=== PATIENT | female | born 1980 | race Caucasian/White ===

== ENCOUNTER 2017-12-08 15:02 | Observation (INO) | payer MEDICAID, SELFPAY ==
[2017-12-08] VITALS (102 sets, daily range): BP systolic 61–120; BP diastolic 27–75; PULSE 51–89; RESP 4–32; TEMP 35.7–36.8; O2SAT 77–100
[2017-12-08] MEDS: Albuterol 2.5 MG/3 ML INH SOLN VIAL (15:50)
--- NOTE | 2017-12-08 15:58 | DI.RAD_ITS ---
SYMPTOM/DIAGNOSIS: COUGH SHORTNESS OF BREATH, F/O ACUTE DISEASE PORTABLE AP CHEST: 1735 HOURS 12/08 The heart is not enlarged. There are patchy intrapulmonary opacities seen bilaterally most prominent in mid lungs and lung bases. The findings are suspicious for multi-focal pneumonia. Appropriate follow up studies requested.
--- NOTE | 2017-12-08 16:00 | W.ED.GENAD ---
Discharge Plan Disposition Patient Disposition: [facility] INPATIENT Condition: Fair Discharge Details Chief Complaint: SOB Clinical Impression: Pneumonia, Hypoxia, Leukocytosis, Moderate methadone dependence, Sepsis, Hypotension Reason For Visit: PNEUMONIA, COPD Admit Date/Time: 12/08/17 19:14 Admit Provider: Hayden Garza Attending Provider: Hayden Garza Primary Care Provider: Raya Rice ED Provider: Kacy Virk Discharge Data Discharge Date/Time-TO BE ENTERED AT DEPARTURE: 12/08/17 22:05 Medical Decision Making 37yo M who presents to the ED after sent by PCP office for cold symptoms, shortness of breath and hypoxia of 62% on room air. On arrival, O2 sat 71% on room air. She increased to 94% on 4 L. She has a history of narcotic drug abuse but denies any recently. She is on methadone. Patient airway intact and she is speaking in full sentences. She is awake but appears drowsy at times. Normal pupils. She does not appear somnolent. Blood pressure 108/49. Pulse 88. Respirations 16. Diminished breath sounds with wheezing and rhonchi throughout She admits to right ear pain, sore throat and cough with yellow sputum for the past 4 days. She also admits to fatigue, decreased p.o. intake. She denies chest pain or known fever. She denies history of intubations. Differential diagnosis includes acute asthma exacerbation, pneumonia, PE, PA. Will give a 1 hour long neb, Solu-Medrol IV, magnesium. Due to patient's significant hypoxia, an ABG was done which noted pH of 7.38, oxygen saturation 89%, bicarb 26, PCO2 44. 1700: Labs reviewed and note a white blood cell count of 25. Glucose 76. Anion gap 11.3. Troponin negative. Will give 1 L IV fluids. Pt states she feels better. Chest x-ray read pending but appears to be consolidation in bases, worse on right side. Will start treatment for community-acquired pneumonia. She denies any recent antibiotics or hospital admission. 1800 -- EKG notes a rate of 83, sinus, no acute ST elevation or depression, OTc 472, QRS 90. She is allergic to PCN and there is an interaction of levaquin with methadone w/ risk for QT prolongation and she is already borderline QTc for female. Will give vanc and aztrenam IV. 1814: Nurse called me to room for hypotension. Systolic blood pressure 78. Patient only has 22-gauge IV and hand. She has a previous history of heroin use and poor prophylaxis. We will place a central line. Pt still appears drowsy at times which I question is due to her methadone as she is very easily arousable and still stating that she feels better. Her color is pale. Lung sounds improved. O2 sat still 88-92 % on 4L NC. Will give another 1 hour long neb. Chest x-ray notes opacities and bases and right mid lung. 1829: Case discussed with hospitalist Dr. Garza - accepts pt for admission. COURSE above in note not completed by me - Kacy Virk 191: Patient has responded to fluids and central line has not yet been placed and may be able to hold at this time. This was discussed with Dr. Garza. Patient has has received 1 L IV fluids through a 22-gauge in her hand. Multiple attempts unsuccessful for second line placement. Nurse practitioner Sg is going to place an ultrasound-guided IV at bedside now. 2030: Systolic blood pressure 70s-80s. Patient has received approximately 1250mL IV fluid. She states she feels better but she is pale. Her SBP while placing central line 98. Central line placed in the right femoral region. Had some difficulty with fully inserting catheter due to kinking of wire which may have been from body habitus and there is approximately 3cm of catheter end out of groin but is sutured in place and all ports with good blood return. Pt to go to ICU now. Just prior to ICU transfer, noted that lactate returned and 0.5. I am still suspecting sepsis due to pneumonia however unsure if there is another process causing her hypotension. Her d dimer was negative as well. HPI General Mode of arrival: wheelchair. Date/Time Provider Initiated Documentation: 12/08/17 15:48. Limitations to Documentation: no limitations. Information obtained by: patient. HPI Narrative: Patient is a 37-year-old female with a history of asthma, diabetes, COPD, GERD, tobacco smoker, chronic pain on methadone, polysubstance abuse and opioid dependence who presents for right ear pain, sore throat, cough with yellow sputum production for the past 4 days. Patient was sent by the PCP office for oxygen saturations between 60 and 70%. Patient came by private vehicle. Patient also admits to fatigue and decreased p.o. intake. She denies history of intubations. Past medical history: Asthma, anxiety, bipolar disorder, depression, diabetes, GERD, hepatitis C, PTSD Surgical history: Appendectomy, cholecystectomy, , hysterectomy, tonsillectomy Social history: smokes tobacco, denies alcohol use. Previous history of heroin and cocaine Medications: See list Allergies: Penicillin, sulfa Related Data Home Medications Medication Instructions Recorded Confirmed albuterol sulfate 2 puff INHALATION Q6H PRN PRN 10/10/13 12/10/17 methadone 100 mg PO DAILY 10/11/15 12/10/17 esomeprazole magnesium [Nexium] 40 mg PO DAILY 02/08/16 12/10/17 fluoxetine 40 mg PO BID 02/08/16 12/10/17 gabapentin 1,600 mg PO TID 02/08/16 12/10/17 hydroxyzine pamoate [Vistaril] 50 mg PO BID 02/08/16 12/10/17 insulin lispro [Humalog KwikPen 3 unit SQ PRN PRN 07/18/17 12/10/17 Insulin] zolpidem 10 mg PO HS 07/18/17 12/10/17 albuterol sulfate 2.5 mg INHALATION Q2H PRN #90 ml 12/10/17 12/10/17 doxycycline hyclate 100 mg PO BID #14 tab 12/10/17 hydroxyzine pamoate 100 mg PO QPM 12/10/17 12/10/17 insulin detemir U-100 [Levemir 20 unit SUBCUT HS #15 ml 12/10/17 12/10/17 FlexTouch U-100 Insuln] lithium carbonate 300 mg PO BID 12/10/17 12/10/17 prednisone 40 mg PO DAILY #14 tab 12/10/17 12/10/17 propranolol 80 mg PO DAILY 12/10/17 12/10/17 Previous Rx's Medication Instructions Recorded albuterol sulfate 2.5 mg INHALATION Q2H PRN #90 ml 12/10/17 doxycycline hyclate 100 mg PO BID #14 tab 12/10/17 insulin detemir U-100 [Levemir 20 unit SUBCUT HS #15 ml 12/10/17 FlexTouch U-100 Insuln] prednisone 40 mg PO DAILY #14 tab 12/10/17 Allergies Allergy/AdvReac Type Severity Reaction Status Date / Time Penicillins Allergy Severe Anaphylaxsi Unverified 07/18/17 18:45 s Sulfa (Sulfonamide Allergy Severe Anaphylaxsi Unverified 07/18/17 18:45 Antibiotics) s General Stated Complaint: SOB NANI: 3 Review of Systems Review of Systems All systems reviewed & are unremarkable except as noted in HPI and below Constitutional Denies chills, Denies excessive sweating, Denies fatigue, Denies fever(s), Denies weakness and Denies weight loss Eyes Reports system reviewed and no additional complaints, except as docu and Denies blurry vision ENT Denies vertigo, Denies dizziness, Reports otalgia, Denies nasal congestion, Reports sore throat and Denies throat swelling Cardiovascular Denies chest pain, Denies syncope, Denies rapid heart rate and Reports dyspnea Respiratory Reports dyspnea Gastrointestinal Denies abdominal pain, Denies diarrhea and Denies vomiting Genitourinary Denies hematuria, Denies dysuria and Denies flank pain Musculoskeletal Denies back pain and Denies joint swelling Integumentary/Breasts Denies lesions and Denies rash Neurologic Denies behavioral changes, Denies confusion, Denies vertigo, Denies dizziness, Denies syncope and Denies weakness Psychiatric Denies behavioral changes, Denies confusion and Denies depression Endocrine Denies excessive sweating and Denies fatigue Hematologic/Lymphatic Denies easy bruising and Denies lymphadenopathy Allergic/Immunologic Denies throat swelling PFSH Medical History COPD (chronic obstructive pulmonary disease) (Chronic) Diabetes (Chronic) Substance abuse (Acute) Pneumonia (Acute) Seizure (Suspected 06/27/13) Substance abuse (Acute 06/27/13) Withdrawal symptoms, drug or narcotic (Acute 06/27/13) Chronic hepatitis C (Chronic) Opiate dependence (Chronic) Polysubstance abuse (Chronic) Chronic pain syndrome (Chronic) Bipolar disorder (Chronic) GERD (gastroesophageal reflux disease) (Chronic) Tobacco use disorder (Chronic) Reactive airway disease (Chronic) History of abnormal cervical Pap smear (Chronic) Stomatitis and mucositis (Acute) Social History Smoking/Tobacco Use Status: Current every day Exam Const General: cooperative and ill appearing Orientation: alert and awake HENMT Head: normal to inspection Ears: hearing grossly normal bilaterally, external ears normal and TM's normal bilaterally General nose exam: external nose normal Face and sinus: normal facial exam and no sinus tenderness Mouth: moist mucous membranes Teeth and gingiva: dentition normal Throat: posterior oropharynx normal Eyes General: appearance normal, both eyes and all related structures Eyelids: eyelids normal Pupils: PERRL EOM: EOM intact bilaterally Neck Neck: normal visual inspection Lymphatic: no lymphadenopathy noted Chest Chest: normal inspection of the chest Resp Effort & Inspection: able to speak in complete sentences Auscultation: diminished lung sounds (throughout) Cardio Rate: regular rate Rhythm: regular rhythm GI Inspection: normal to inspection Palpation: soft, not firm, no guarding, no hepatosplenomegaly, no masses and nontender Auscultation: normal bowel sounds Back/Spine/Pelvis Back: no CVA tenderness Skin General skin exam: no rashes or lesions noted and pallor Neuro General: awake (but drowsy at times as well and easily arousable) and oriented x3 Cognition: normal cognition Speech: speech normal Motor: muscle tone normal throughout Sensory Exam: no sensory deficits noted Extrem General: normal to inspection, full ROM, normal capillary refill and no edema Psych Appearance: grossly normal Mental Status: mental status grossly normal Speech and Movement: speech and movement normal Affect: normal affect Thought Process: normal Course This is a 37-year-old woman admitted on 12/08/2017 with worsening shortness of breath and cough. She was found to have a right lower lobe infiltrate. Blood cultures taken on admission have come back positive 1 out of 2 bottles for gram-positive cocci, staph species. She was empirically started on vancomycin and aztreonam because of her multiple drug allergies. She was on appropriate antibiotics but unfortunately cannot wait for further identification of the bacteria nor can she wait for further workup of possible staph aureus bacteremia. We discussed echocardiogram further blood culture surveillance. She understands this but states she has to take care of her mother and cannot wait. She said she would come back if she began to feel ill. She is adamant she feels better and wants to go home. Vital Signs Pulse 88 12/08/17 15:05 Respiratory Rate 16 12/08/17 15:05 Blood Pressure 108/49 L 12/08/17 15:05 Pulse Oximetry 77 L 12/08/17 15:05 Pulse 88 12/08/17 15:05 Pulse 86 12/08/17 15:22 Respiratory Rate 15 12/08/17 15:22 Respiratory Effort 12/08/17 15:21 Blood Pressure 108/49 L 12/08/17 15:05 Pulse Oximetry 91 L 12/08/17 15:22 Oxygen Delivery Method Room Air 12/08/17 15:05 Oxygen Flow Rate 0 12/08/17 15:05 Pain Level 7 12/08/17 15:05 Procedures Central Line Placement Right Femoral: Time Out Performed: Yes Patient Placed on Monitor/Pulse Ox: Yes MD Prep: mask, gown and gloves Central Line Prep: Chlorhexidine scrub Local Anesthetic: Lidocaine 1% Ultrasound Used for Placement: No Central Line Lumen Inserted: triple Post Procedure: good blood return, all ports aspirated, flushed, capped and sutured in place with 3-0 nylon Patient Tolerated Procedure: well Complications: other (Good blood return upon needle placement in right femoral vein but wire kinked twice during placement. Approximately 3 cm of catheter left outside. Good blood return and all ports)
[2017-12-08] MEDS: Albuterol 2.5 MG/3 ML INH SOLN VIAL 10 MG UPD (16:08)
[2017-12-08 16:23] LABS: BE 1.2 mmol/L (-3-3); HCO3 26 mmol/L (22-28); pCO2 44 mmHg (34-47); pH 7.38 (7.35-7.45); pO2 56 mmHg (83-108); sO2 89 % (94-98); tCO2 24 mmol/L (22-29)
[2017-12-08] MEDS: methylPREDNISolone SUCC 125 MG VIAL IVP (16:24)
[2017-12-08] MEDS: MAGNESIUM SULFATE 2 GM/50 ML BAG IVPB (16:25)
[2017-12-08 16:33] LABS: Abs Immature Grans 0.09 k/cumm (0.0-0.09); Absolute Eosinophil Count 0.18 k/cumm (0.0-0.7); Basophils % 0.2; Eosinophils % 0.7; HCT 38.3 % (36.0-46.0); HGB 12.3 g/dL (12.0-15.5); Immature Grans % 0.4; Lymphocytes % 14.2; Mean Corp. HGB Concentration 32.1 g/dL (32.0-36.0); Mean Corpuscular Hemoglobin 27.5 pg (27.0-33.0); Mean Corpuscular Volume 85.7 fL (80-95); Mean Platelet Volume 10.9 fL (8.0-11.0); Monocytes % 4.6; Neutrophils % 79.9; Platelet Count 299 x1000/uL (130-400); RBC 4.47 m/cumm (4.00-5.20); RBC Distribution Width 15.8 % (11.7-14.6)
[2017-12-08 16:42] LABS: ALT 81 U/L (12-78); AST 54 U/L (15-37); Albumin 3.5 g/dL (3.4-5.0); Alkaline Phosphatase 163 U/L (46-116); Anion Gap 11.3 mmol/L (3-11); BUN 10 mg/dL (7-18); Bilirubin, Total 0.6 mg/dL (0.2-1.0); CO2 25.7 mmol/L (21.0-32.0); CREATININE 0.75 mg/dL (0.55-1.02); Calcium 8.9 mg/dL (8.5-10.1); Chloride 99 mmol/L (98-107); Glucose 76 mg/dL (70-100); Potassium 3.8 mmol/L (3.5-5.1); Sodium 136 mmol/L (136-145); Total Protein 8.1 g/dL (6.4-8.2); Troponin I < 0.02 ng/mL (0.00-0.06)
[2017-12-08 16:50] LABS: Absolute Basophil Count 0.05 k/cumm (0.0-0.2); Absolute Lymphocyte Count 3.62 k/cumm (1.2-3.4); Absolute Monocyte Count 1.17 k/cumm (0.11-0.7); Absolute Neutrophil Count 20.38 k/cumm (1.2-6.7); Diff Comment Agrees w/ Instrument; RBC Morphology Normal; White Blood Cell Count 25.51 k/cumm (4.4-10.8)
[2017-12-08] MEDS: Normal Saline 1,000 ML 1000 ML IV ×2 (17:15→20:00)
[2017-12-08] MEDS: Albuterol 2.5 MG/3 ML INH SOLN VIAL 7.5 MG UPD (18:00)
--- NOTE | 2017-12-08 18:07 | DI.VRAD_ITS ---
EXAM: XR Chest, 1 View EXAM DATE/TIME: 12/08/2017 3:59 PM CLINICAL HISTORY: 37 years old, female; Signs and symptoms; Shortness of breath TECHNIQUE: XR of the chest, 1 view. COMPARISON: CR CHEST 2 VIEWS PA,LAT 12/03/2011 6:27 PM FINDINGS: Lungs: Opacities in the bases and right midlung may represent atelectasis or pneumonia. Pleural space: Unremarkable. No pleural effusion. No pneumothorax. Heart/Mediastinum: Stable cardiac silhouette Bones/joints: Osseous structures are stable IMPRESSION: Opacities in the bases and right midlung may represent atelectasis or pneumonia. Dictated and Authenticated by: Marie Herrera MD. Ordering:CHANTE GONZALES MD
[2017-12-08 18:45] LABS: D-Dimer 339 ng/mlFEU (<500)
--- NOTE | 2017-12-08 18:58 | HPE_ITS ---
Date of service: 12/08/17 Time of Service: 18:56 Assessment and Plan (1) Pneumonia: Current visit: Yes Status: Acute COPD, possible pneumonia. Given marked leukocytosis and hypoxia will charlee the safe side and give IV antibiotics and in addition to a steroids and updrafts. Will avoid cephalosporin given the anaphylactic reaction to penicillins. Will also avoid fluoroquinolone quinolone and Zithromax given the marginal QT interval and the risk for further prolongation with these antibiotics will continue the vancomycin and aztreonam regimen as started in the emergency room for now. (2) Substance abuse: Current visit: Yes Status: Acute We will continue methadone as is. (3) Diabetes: Current visit: Yes Status: Chronic We will hold any scheduled insulin give any euglycemia at present and cover with sliding scale insulin. (4) COPD (chronic obstructive pulmonary disease): Current visit: Yes Status: Chronic See above History of Present Illness Chief Complaint: cough, sob Narrative: Patient is a 37-year-old female with history of substance abuse. She comes in with 4 days of productive cough and 1 day of shortness of breath.. She was seen in her primary care doctor's office today and the O2 sats were reported to be in the 60s. Here in the emergency room she was noted to be diffusely wheezing. She has been given steroids, magnesium and updrafts and she states she feels somewhat better initial findings of note for leukocytosis of 25,000 and chest x-ray showing diffuse pneumonitis.. She was ordered for vancomycin and aztreonam and was admitted for further evaluation and management. Allergy to penicillin (anaphylaxis), sulfa (anaphylaxis) Medications albuterol as needed Nexium 40 daily Prozac 40 twice daily Neurontin 1600 3 times daily Vistaril 50 4 times daily Levemir 34 units daily Humalog as needed methadone 100 mg daily daily Inderal 80 daily Ambien 10 at bedtime Past medical history substance abuse diabetes hepatitis C chronic pain bipolar GERD continued smoking Physical exam temp 36.7 blood pressure 108/49 respiration 20 pulse 80 O2 sat 93 % on 4 L. HEENT shows no signs of head trauma neck is supple. Lungs show diffuse rales and rhonchi. Heart is distant but regular rate and rhythm. Abdomen is soft and nontender. Pelvic and rectal exams are deferred. Neurological patient is alert and oriented and moves all 4 extremities equally. Laboratory: White count is 25.5 hematocrit 38 platelets 239 sodium 136 potassium 3.8 chloride 99 bicarb 25 BUN 10 creatinine 0.7. Glucose 76 lactate pending EKG shows sinus rhythm with QTC of 472. Chest x-ray shows pneumonitis versus atelectasis, poor inspiration. Review of Systems Review of Systems All systems reviewed & are unremarkable except as noted in HPI and below PFSH Social History Smoking/Tobacco Use Status: Current every day Meds Home Medications Medication Instructions Recorded Confirmed Type insulin detemir U-100 [Levemir 34 units SUB-Q DAILY 05/25/12 12/08/17 History Flexpen] albuterol sulfate 1 ea INHALATION PRN PRN 10/10/13 12/08/17 History albuterol sulfate 2 puff INHALATION Q6H PRN PRN 10/10/13 12/08/17 History methadone 100 mg PO DAILY 10/11/15 12/08/17 History esomeprazole magnesium [NexIUM] 40 mg PO DAILY 02/08/16 12/08/17 History fluoxetine 40 mg PO BID 02/08/16 12/08/17 History gabapentin 1,600 mg PO TID 02/08/16 12/08/17 History hydroxyzine pamoate [Vistaril] 50 mg PO QID 02/08/16 12/08/17 History propranolol 80 mg PO DAILY 02/08/16 12/08/17 History insulin lispro [Humalog Kwikpen 3 unit SQ PRN PRN 07/18/17 12/08/17 History U-100] zolpidem 10 mg PO HS 07/18/17 12/08/17 History Allergies Allergy/AdvReac Type Severity Reaction Status Date / Time Penicillins Allergy Severe Anaphylaxsi Unverified 07/18/17 18:45 s Sulfa (Sulfonamide Allergy Severe Anaphylaxsi Unverified 07/18/17 18:45 Antibiotics) s Exam Narrative Exam Narrative: seed HPI Results Labs : 12/08/17 16:05 12/08/17 16:05 Laboratory Results - last 24 hr 12/08/17 12/08/17 12/08/17 16:05 16:05 16:05 WBC 25.51 H* RBC 4.47 Hgb 12.3 Hct 38.3 MCV 85.7 MCH 27.5 MCHC 32.1 RDW 15.8 H Plt Count 299 MPV 10.9 Immature Gran % 0.4 Neutrophils % 79.9 Lymphocytes % 14.2 Monocytes % 4.6 Eosinophils % 0.7 Basophils % 0.2 Absolute Neutrophils 20.38 H Absolute Lymphocytes 3.62 H Absolute Monocytes 1.17 H Absolute Eosinophils 0.18 Absolute Basophils 0.05 Differential Comment Agrees w/ instrument RBC Morphology Normal D-Dimer Sample Site Unknown pCO2 44 pO2 56 L O2 Saturation 89 L ABG pH 7.38 ABG HCO3 26 ABG Total CO2 24 ABG Base Excess 1.2 Sodium 136 Potassium 3.8 Chloride 99 Carbon Dioxide 25.7 Anion Gap 11.3 H BUN 10 Creatinine 0.75 Estimated GFR/1.73 m2 >= 60.00 Glucose 76 Calcium 8.9 Magnesium 2.0 Total Bilirubin 0.6 AST 54 H ALT 81 H Alkaline Phosphatase 163 H Troponin I < 0.02 Total Protein 8.1 Albumin 3.5 12/08/17 16:05 WBC RBC Hgb Hct MCV MCH MCHC RDW Plt Count MPV Immature Gran % Neutrophils % Lymphocytes % Monocytes % Eosinophils % Basophils % Absolute Neutrophils Absolute Lymphocytes Absolute Monocytes Absolute Eosinophils Absolute Basophils Differential Comment RBC Morphology D-Dimer 339 Sample Site pCO2 pO2 O2 Saturation ABG pH ABG HCO3 ABG Total CO2 ABG Base Excess Sodium Potassium Chloride Carbon Dioxide Anion Gap BUN Creatinine Estimated GFR/1.73 m2 Glucose Calcium Magnesium Total Bilirubin AST ALT Alkaline Phosphatase Troponin I Total Protein Albumin
[2017-12-08] MEDS: AZTREONAM 2,000 MG in Normal Saline 100 ML 200 MG IVPB (19:12)
[2017-12-08 19:13] LABS: BE -1.5 mmol/L (-3-3); HCO3 24 mmol/L (22-28); pCO2 41 mmHg (34-47); pH 7.37 (7.35-7.45); pO2 58 mmHg (83-108); sO2 89 % (94-98); tCO2 22 mmol/L (22-29)
[2017-12-08 19:15] LABS: FIO2 Cannula %; FIO2L 3 L; Site Right Radial
[2017-12-08 19:18] LABS: Lactate-non-spesis 0.5 mmol/L (0.6-1.4)
[2017-12-08] MEDS: VANCOMYCIN 1,250 MG in Normal Saline 250 ML 166.6666 MG IVPB (20:02)
[2017-12-08 20:24] LABS: *AMPHETAMINES SCREEN URINE Negative (Negative); *BARBITURATES SCREEN URINE Negative (Negative); *BENZODIAZEPINES SCREEN URINE Negative (Negative); Cannabinoids THC Negative (Negative); Cocaine Screen,Urine Negative (Negative); METHADONE URINE SCREEN POSITIVE (Negative); OPIATES URINE SCREEN Negative (Negative); Tricyclic Antidepressants Negative (Negative)
--- NOTE | 2017-12-08 22:41 | NUR.NOTE ---
Nursing Note: At 1900 patient had a femoral triple lumen placed by ED provider in her right groin this short story writer was present during the multiple attempts during insertion. Provider denied the need for verification of placement. At 1924 the levophed was ordered to treat patients hypotention. At the time of administration ICU nurse Beverly and Er nurse Vilma were present at bedside. Drip was started at 5 MCG a min. Patient didn't tolerate the medication she started to have pauses and her HR went from the 80's down into the 50's. The medication was stopped. Patient recovered and began to feel much better. This short story writer then tried to infuse just saline thought the same lumen (white) in the femoral triple lumen. Patient then began with the same symptoms.The Levophed was then infused through the iv in her LFA, patient tolerated it for a short while and then again began to not tolerate the medication. This process took a long while. The patient was wheeled up at 2205 to the ICU.
--- NOTE | 2017-12-08 23:29 | W.PM.PROGNOT ---
Subjective Interval history since last seen: After having seen the patient, while still in ER she became hypotensive. Levophed was started and she became acutely bradycardic and diaphoretic. levophed was stopped, she had similar reaction to saline . Since arrival in ICU BP has been stable in 120 range. Patient states she feels well at this point. Has had 3 liters IVF total. EKG at present is unchanged. A/P Unclear what the hypotension represents. In setting of evident infection we have to presume septic shock like picture, though subsequent reaction to levophed suggests either toxic effect or vagal reaction. In any case no other source of hypotension evident and patient has been hemodynamically stable since arrival in ICU. Will continue antibiotics, await cultures and continue IVF. Objective Objective Clinical Data: Abnormal lab results 12/08/17 12/08/17 12/08/17 Range/Units 16:05 16:05 16:05 WBC 25.51 H* (4.4-10.8) k/cumm RDW 15.8 H (11.7-14.6) % Absolute Neutrophils 20.38 H (1.2-6.7) k/cumm Absolute Lymphocytes 3.62 H (1.2-3.4) k/cumm Absolute Monocytes 1.17 H (0.11-0.7) k/cumm pO2 56 L (83-108) mmHg O2 Saturation 89 L (94-98) % Anion Gap 11.3 H (3-11) mmol/L Lactate (0.6-1.4) mmol/L AST 54 H (15-37) U/L ALT 81 H (12-78) U/L Alkaline Phosphatase 163 H (46-116) U/L 12/08/17 12/08/17 Range/Units 17:45 19:10 WBC (4.4-10.8) k/cumm RDW (11.7-14.6) % Absolute Neutrophils (1.2-6.7) k/cumm Absolute Lymphocytes (1.2-3.4) k/cumm Absolute Monocytes (0.11-0.7) k/cumm pO2 58 L (83-108) mmHg O2 Saturation 89 L (94-98) % Anion Gap (3-11) mmol/L Lactate 0.5 L (0.6-1.4) mmol/L AST (15-37) U/L ALT (12-78) U/L Alkaline Phosphatase (46-116) U/L Vital Signs Temperature 35.7 C L 12/08/17 22:48 Temperature Source Tympanic 12/08/17 22:48 Pulse 75 12/08/17 22:48 Pulse 79 12/08/17 22:31 Respiratory Rate 24 12/08/17 22:48 Respiratory Effort 12/08/17 22:48 Respiratory Depth Normal 12/08/17 22:48 Respiratory Pattern Normal 12/08/17 22:48 Blood Pressure 113/62 12/08/17 22:48 Blood Pressure Mean 79 12/08/17 22:48 Blood Pressure Position Supine 12/08/17 22:48 Pulse Oximetry 96 12/08/17 22:48 Oxygen Delivery Method Nasal Cannula 12/08/17 22:48 Oxygen Flow Rate 4 12/08/17 22:48 Pain Level 0 12/08/17 22:48 Intake & Output 12/07/17 12/08/17 12/08/17 23:59 11:59 23:59 Intake Total 3400 / 3400 Output Total 400 / 400 Balance 3000 / 3000 Weight 92.5 kg Intake: IV 3400 / 3400 Output: Urine 400 / 400 Other: Urine Color Straw Urine Appearance Clear Comment S/P hysterectomy. Laboratory Results WBC 25.51 k/cumm (4.4-10.8) H* 12/08/17 16:05 RBC 4.47 m/cumm (4.00-5.20) 12/08/17 16:05 Hgb 12.3 g/dL (12.0-15.5) 12/08/17 16:05 Hct 38.3 % (36.0-46.0) 12/08/17 16:05 MCV 85.7 fL (80-95) 12/08/17 16:05 MCH 27.5 pg (27.0-33.0) 12/08/17 16:05 MCHC 32.1 g/dL (32.0-36.0) 12/08/17 16:05 RDW 15.8 % (11.7-14.6) H 12/08/17 16:05 Plt Count 299 x1000/uL (130-400) 12/08/17 16:05 MPV 10.9 fL (8.0-11.0) 12/08/17 16:05 Immature Gran % 0.4 12/08/17 16:05 Neutrophils % 79.9 12/08/17 16:05 Lymphocytes % 14.2 12/08/17 16:05 Monocytes % 4.6 12/08/17 16:05 Eosinophils % 0.7 12/08/17 16:05 Basophils % 0.2 12/08/17 16:05 Absolute Neutrophils 20.38 k/cumm (1.2-6.7) H 12/08/17 16:05 Absolute Lymphocytes 3.62 k/cumm (1.2-3.4) H 12/08/17 16:05 Absolute Monocytes 1.17 k/cumm (0.11-0.7) H 12/08/17 16:05 Absolute Eosinophils 0.18 k/cumm (0.0-0.7) 12/08/17 16:05 Absolute Basophils 0.05 k/cumm (0.0-0.2) 12/08/17 16:05 Differential Comment Agrees w/ instrument 12/08/17 16:05 RBC Morphology Normal 12/08/17 16:05 D-Dimer 339 ng/mlFEU (<500) 12/08/17 16:05 Sample Site Right radial 12/08/17 19:10 pCO2 41 mmHg (34-47) 12/08/17 19:10 pO2 58 mmHg (83-108) L 12/08/17 19:10 O2 Saturation 89 % (94-98) L 12/08/17 19:10 ABG pH 7.37 (7.35-7.45) 12/08/17 19:10 ABG HCO3 24 mmol/L (22-28) 12/08/17 19:10 ABG Total CO2 22 mmol/L (22-29) 12/08/17 19:10 ABG Base Excess -1.5 mmol/L (-3-3) 12/08/17 19:10 Oxygen Liter Flow 3 L 12/08/17 19:10 FiO2 Cannula % 12/08/17 19:10 Sodium 136 mmol/L (136-145) 12/08/17 16:05 Potassium 3.8 mmol/L (3.5-5.1) 12/08/17 16:05 Chloride 99 mmol/L (98-107) 12/08/17 16:05 Carbon Dioxide 25.7 mmol/L (21.0-32.0) 12/08/17 16:05 Anion Gap 11.3 mmol/L (3-11) H 12/08/17 16:05 BUN 10 mg/dL (7-18) 12/08/17 16:05 Creatinine 0.75 mg/dL (0.55-1.02) 12/08/17 16:05 Estimated GFR/1.73 m2 >= 60.00 (mL/min/1.73m2) 12/08/17 16:05 Glucose 76 mg/dL (70-100) 12/08/17 16:05 Lactate 0.5 mmol/L (0.6-1.4) L 12/08/17 17:45 Calcium 8.9 mg/dL (8.5-10.1) 12/08/17 16:05 Magnesium 2.0 mg/dL (1.8-2.4) 12/08/17 16:05 Total Bilirubin 0.6 mg/dL (0.2-1.0) 12/08/17 16:05 AST 54 U/L (15-37) H 12/08/17 16:05 ALT 81 U/L (12-78) H 12/08/17 16:05 Alkaline Phosphatase 163 U/L (46-116) H 12/08/17 16:05 Troponin I < 0.02 ng/mL (0.00-0.06) 12/08/17 16:05 Total Protein 8.1 g/dL (6.4-8.2) 12/08/17 16:05 Albumin 3.5 g/dL (3.4-5.0) 12/08/17 16:05 Urine Opiates Screen Negative (Negative) 12/08/17 20:05 Urine Methadone Screen Positive (Negative) 12/08/17 20:05 Ur Barbiturates Screen Negative (Negative) 12/08/17 20:05 Ur Tricyclics Screen Negative (Negative) 12/08/17 20:05 Ur Amphetamines Screen Negative (Negative) 12/08/17 20:05 U Benzodiazepines Scrn Negative (Negative) 12/08/17 20:05 Urine Cocaine Screen Negative (Negative) 12/08/17 20:05 Ur THC Screen Negative (Negative) 12/08/17 20:05
[2017-12-09] VITALS (30 sets, daily range): BP systolic 99–134; BP diastolic 52–96; PULSE 53–110; RESP 15–26; TEMP 35.6–36.7; O2SAT 92–96
[2017-12-09] MEDS: Gabapentin 800 MG TAB 1600 MG PO ×4 (00:01→20:15)
[2017-12-09] MEDS: FLUoxetine 20 MG CAP 40 MG PO ×3 (00:01→20:13)
[2017-12-09] MEDS: Normal Saline 250 ML IV (00:01)
[2017-12-09] MEDS: Zolpidem 10 MG TAB PO ×2 (00:01→20:20)
[2017-12-09] MEDS: hydrOXYzine PAMOATE 25 MG CAP 50 MG PO ×4 (00:43→15:42)
[2017-12-09] MEDS: methylPREDNISolone SUCC 40 MG VIAL IVP ×2 (01:12→08:57)
[2017-12-09] MEDS: Normal Saline 1,000 ML 250 ML IV ×2 (04:45→17:23)
[2017-12-09 06:29] LABS: HCT 35.2 % (36.0-46.0); HGB 11.3 g/dL (12.0-15.5); Mean Corp. HGB Concentration 32.1 g/dL (32.0-36.0); Mean Corpuscular Hemoglobin 27.6 pg (27.0-33.0); Mean Corpuscular Volume 86.1 fL (80-95); Mean Platelet Volume 11.2 fL (8.0-11.0); Platelet Count 252 x1000/uL (130-400); RBC 4.09 m/cumm (4.00-5.20); RBC Distribution Width 15.6 % (11.7-14.6); White Blood Cell Count 14.77 k/cumm (4.4-10.8)
--- NOTE | 2017-12-09 06:54 | PDOC.CMIN ---
- If Service Date Differs Date of service: 12/09/17 Time of Service: 06:54 Care Management Initial Assess REASON FOR HOSPITALIZATION:: COPD, pneumonia. PAST MEDICAL HISTORY/PAST SURGICAL HISTORY:: COPD, diabetes, substance abuse, seizures, chronic Hep C., bipolar disorder, GERD, hx abnormal cervical Pap, stomatitis and mucositis. PREVIOUS FUNCTIONAL STATUS/SOCIAL/FAMILY SUPPORTS:: Doretha resides at the [facility] with her mom, Noemi, and an adult friend. She has two children; ages 12 and 10, who do not live with her but reports that she sees them regularly. She has a disability hearing at the [facility] on 12/26. In 2011 she moved to [facility] from [place]. 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 CURRENT FUNCTIONAL STATUS:: Doretha is sitting in her chair in the ICU when CM visits with her this morning. She is engaged in conversation, makes good eye contact, and is talkative. Doretha denies pain but report that her ears hurt a bit and she is congested. She is currently receiving supplemental O2 (1 L) via [place]. ADVANCE DIRECTIVES:: None on file at [facility]. Has patient been provided with information about the portal?: Yes Did the patient sign up for the portal?: No CODE STATUS:: Full Code INSURANCE COVERAGE / FINANCIAL ISSUES:: Medicaid. CURRENT HOME/COMMUNITY SERVICES/EQUIPMENT:: No current home or community services. PRIMARY CARE PHYSICIAN:: Ryaa Rice. POTENTIAL DISCHARGE NEEDS:: Follow up appointment with PCP. PATIENT/FAMILY EDUCATION NEEDS:: Discharge education, any limitations and follow up plan of care. Ask Me Three discussion. ANTICIPATED BARRIERS TO DISCHARGE:: No anticipated barriers to discharge. TRANSPORTATION:: Doretha will transport via [facility] at discharge. PLAN:: Doretha will discharge home when medically ready per MD. Anticipate patient will discharge with no services and follow up with PCP. CM will continue to offer support to patient and care team regarding discharge planning and disposition.
--- NOTE | 2017-12-09 06:59 | INITIAL_ITS ---
- If Service Date Differs Date of service: 12/09/17 Time of Service: 06:54 Care Management Initial Assess REASON FOR HOSPITALIZATION:: COPD, pneumonia. PAST MEDICAL HISTORY/PAST SURGICAL HISTORY:: COPD, diabetes, substance abuse, seizures, chronic Hep C., bipolar disorder, GERD, hx abnormal cervical Pap, stomatitis and mucositis. PREVIOUS FUNCTIONAL STATUS/SOCIAL/FAMILY SUPPORTS:: Doretha resides at the [facility] with her mom, Noemi, and an adult friend. She has two children; ages 12 and 10, who do not live with her but reports that she sees them regularly. [facility]. In 2011 she moved to [facility] from [place]. 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 CURRENT FUNCTIONAL STATUS:: Doretha is sitting in her chair in the ICU when CM visits with her this morning. She is engaged in conversation, makes good eye contact, and is talkative. Doretha denies pain but report that her ears hurt a bit and she is congested. She is currently receiving supplemental O2 (1 L) via [place]. ADVANCE DIRECTIVES:: None on file at [facility]. Has patient been provided with information about the portal?: Yes Did the patient sign up for the portal?: No CODE STATUS:: Full Code INSURANCE COVERAGE / FINANCIAL ISSUES:: Medicaid. CURRENT HOME/COMMUNITY SERVICES/EQUIPMENT:: No current home or community services. PRIMARY CARE PHYSICIAN:: Raya Rice. POTENTIAL DISCHARGE NEEDS:: Follow up appointment with PCP. PATIENT/FAMILY EDUCATION NEEDS:: Discharge education, any limitations and follow up plan of care. Ask Me Three discussion. ANTICIPATED BARRIERS TO DISCHARGE:: No anticipated barriers to discharge. TRANSPORTATION:: Doretha will transport via [facility] at discharge. PLAN:: Doretha will discharge home when medically ready per MD. Anticipate patient will discharge with no services and follow up with PCP. CM will continue to offer support to patient and care team regarding discharge planning and disposition.
[2017-12-09] MEDS: Normal Saline Flush 10 ML SYR IVP (08:52)
[2017-12-09] MEDS: Methadone Liquid 10 MG/ML 100 MG PO (08:53)
[2017-12-09] MEDS: Esomeprazole 40 MG CAPCR PO (08:56)
[2017-12-09 09:43] LABS: Vancomycin, Trough 3.1 ug/mL (10.0-20.0)
--- NOTE | 2017-12-09 09:50 | DI.RAD_ITS ---
SYMPTOM/DIAGNOSIS: SOB, COUGH PA AND LATERAL CHEST: 12/09 The heart is not enlarged. Note is again made of patchy bilateral intrapulmonary radiodensities with appearance suspicious for multi-focal pneumonia. Little if any interval change in comparison with examination of 12/08/17 No pleural effusion seen. CONCLUSION: Findings suspicious for multi-focal pneumonia.
[2017-12-09 10:04] LABS: Anion Gap 7.8 mmol/L (3-11); BUN 9 mg/dL (7-18); CO2 22.2 mmol/L (21.0-32.0); CREATININE 0.56 mg/dL (0.55-1.02); Calcium 7.7 mg/dL (8.5-10.1); Chloride 111 mmol/L (98-107); Glucose 110 mg/dL (70-100); Potassium 4.4 mmol/L (3.5-5.1); Sodium 141 mmol/L (136-145)
--- NOTE | 2017-12-09 10:21 | DI.VRAD_ITS ---
EXAM: XR Chest, 2 Views EXAM DATE/TIME: 12/09/2017 12:00 AM CLINICAL HISTORY: 37 years old, female; Signs and symptoms; Cough and shortness of breath TECHNIQUE: XR of the chest, 2 views. COMPARISON: SC XR PORTABLE CHEST AP 12/08/2017 5:30 PM FINDINGS: Lungs: Opacities in right midlung and both bases may represent atelectasis/pneumonia. Pleural space: Unremarkable. No pleural effusion. No pneumothorax. Heart/Mediastinum: Stable cardiac silhouette Bones/joints: Unremarkable for patient's age. IMPRESSION: Opacities in right midlung and both bases may represent atelectasis/pneumonia. Dictated and Authenticated by: Marie Herrera MD. Ordering:BETI DELEON MD
--- NOTE | 2017-12-09 11:08 | PHARADMIT ---
Admission Pharmacy Clinical Review PNEUMONIA, COPD Code Status Full Code Current Weight 92.8 kg Renally Cleared and Narrow Therapeutic Index Meds CRCL ~71ML/MIN QTc Value / Action Taken BP Control, Fever 112/88 AFEBRILE Electrolytes reviewed OK DVT Prophylaxis NO Opiate Usage / Scheduled Bowel Regimen Ordered ON CHRONIC METHADONE/NO Plt/SCr for Heparin / Enoxaparin 252/0.56 INR for Warfarin NA H/H stable, WBC/Bands 11.3/35.2 WBC 14.77(25.51 ON ADMISSION) Antibiotic appropriateness AZTREONAM(PEN ALLERGY), VANCOMYCIN Cultures and Sensitivities BC PENDING Surgical ABX d/c within 24 hr NA DM control / Insulin Dosing FS 127, INSULIN ASPART SS Heart Failure (Check EF%) (LYNNETTE's, B-Block, Diuretics) NA IV to PO Switch Home Meds Reviewed multiple DIRECTOR CLINICAL INFORMATION SERVICES depressant meds, zolpidem rec dose for females is 5mg Home Meds Not Ordered insulin detemir U-100 [Levemir Flexpen] 34 units SUB-Q DAILY propranolol 80 mg PO DAILY 02/08/16 [History Confirmed 12/08/17 Comments
[2017-12-09] MEDS: predniSONE 20 MG TAB 40 MG PO (11:22)
[2017-12-09] MEDS: Insulin Aspart 300 UNITS/3 ML PEN SC (17:15)
[2017-12-09] MEDS: VANCOMYCIN 1,000 MG in Normal Saline 250 ML 166.667 MG IVPB (17:21)
--- NOTE | 2017-12-09 18:42 | PGE_ITS ---
Assessment and Plan (1) Pneumonia: Current visit: Yes Status: Acute Right lower lobe pneumonia. Because of multiple allergies she is on aztreonam and vancomycin. Clinically she is improving. White count still elevated at 14,000. Continue IV antibiotics. (2) COPD (chronic obstructive pulmonary disease): Current visit: Yes Status: Chronic Ongoing tobacco abuse. She is taking p.o. well. Will DC Solu-Medrol and switch to p.o. prednisone. Continue updrafts as needed (3) Diabetes: Current visit: Yes Status: Chronic Continue to monitor her fingerstick blood sugars. Continue meds as ordered peer (4) Substance abuse: Current visit: Yes Status: Acute She is getting her methadone. She does not appear to be craving any other substances at this point (5) Seizure: Current visit: No Status: Suspected No evidence of seizure activity. Continue meds as previous Subjective Interval history since last seen: 37-year-old patient admitted last night with bilateral pneumonia. She feels better today. She still has a moderate cough. No fever chills or rigors. She is getting her methadone as ordered. She denies any cravings at this tiime. Exam Narrative Exam Narrative: Her exam today shows her lungs to be relatively clear, perhaps some decreased breath sounds in the right lower lobe. No significant rales. Some and expiratory wheezing bilaterally. Heart regular rate and rhythm no apparent murmur. Abdomen soft and nontender. Lower extremities no significant edema Objective Objective Clinical Data: Abnormal lab results 12/08/17 12/08/17 12/09/17 Range/Units 17:45 19:10 05:40 WBC 14.77 H D (4.4-10.8) k/cumm Hgb 11.3 L (12.0-15.5) g/dL Hct 35.2 L (36.0-46.0) % RDW 15.6 H (11.7-14.6) % MPV 11.2 H (8.0-11.0) fL pO2 58 L (83-108) mmHg O2 Saturation 89 L (94-98) % Chloride (98-107) mmol/L Glucose (70-100) mg/dL Lactate 0.5 L (0.6-1.4) mmol/L Calcium (8.5-10.1) mg/dL Vancomycin Trough (10.0-20.0) ug/mL Olmito And Olmito (0.60-1.20) mmol/L 12/09/17 12/09/17 12/09/17 Range/Units 09:10 09:10 09:10 WBC (4.4-10.8) k/cumm Hgb (12.0-15.5) g/dL Hct (36.0-46.0) % RDW (11.7-14.6) % MPV (8.0-11.0) fL pO2 (83-108) mmHg O2 Saturation (94-98) % Chloride 111 H (98-107) mmol/L Glucose 110 H (70-100) mg/dL Lactate (0.6-1.4) mmol/L Calcium 7.7 L (8.5-10.1) mg/dL Vancomycin Trough 3.1 L (10.0-20.0) ug/mL Ol[place]o [place] Olmito 0.30 L (0.60-1.20) mmol/L Vital Signs Temperature 35.6 C L 12/09/17 09:12 Temperature Source Temporal Artery Scan 12/09/17 09:12 Pulse 88 12/09/17 17:46 Pulse 92 H 12/09/17 17:46 Respiratory Rate 22 12/09/17 17:46 Respiratory Effort Non-Labored 12/09/17 09:12 Respiratory Depth Normal 12/09/17 02:50 Respiratory Pattern Normal 12/09/17 02:50 Blood Pressure 111/62 12/09/17 17:46 Blood Pressure Mean 73 12/09/17 17:46 Blood Pressure Position Supine 12/08/17 22:48 Pulse Oximetry 93 L 12/09/17 17:46 Oxygen Delivery Method Nasal Cannula 12/08/17 22:48 Oxygen Flow Rate 4 12/08/17 22:48 Pain Level 5 12/09/17 08:53 Intake & Output 12/08/17 12/09/17 12/09/17 23:59 11:59 23:59 Intake Total 3400 / 3400 1170 / 1170 580 / 580 Output Total 400 / 400 2175 / 2175 1425 / 1425 Balance 3000 / 3000 -1005 / -1005 -845 / -845 Weight 92.5 kg 92.8 kg Intake: IV 3400 / 3400 350 / 350 100 / 100 Oral 820 / 820 480 / 480 Output: Urine 400 / 400 2175 / 2175 1325 / 1325 Stool 100 / 100 Other: Urine Color Straw Yellow Yellow Urine Appearance Clear Clear Clear Urine Odor Normal Comment S/P hysterectomy. zendejas in place. Mixed with loose stool. Stool Occult Blood Positive Stool Size Moderate Stool Characteristics Liquid Brown Brown Voiding Methods Bedside Commode Laboratory Results WBC 14.77 k/cumm (4.4-10.8) H D 12/09/17 05:40 RBC 4.09 m/cumm (4.00-5.20) 12/09/17 05:40 Hgb 11.3 g/dL (12.0-15.5) L 12/09/17 05:40 Hct 35.2 % (36.0-46.0) L 12/09/17 05:40 MCV 86.1 fL (80-95) 12/09/17 05:40 MCH 27.6 pg (27.0-33.0) 12/09/17 05:40 MCHC 32.1 g/dL (32.0-36.0) 12/09/17 05:40 RDW 15.6 % (11.7-14.6) H 12/09/17 05:40 Plt Count 252 x1000/uL (130-400) 12/09/17 05:40 MPV 11.2 fL (8.0-11.0) H 12/09/17 05:40 Immature Gran % 0.4 12/08/17 16:05 Neutrophils % 79.9 12/08/17 16:05 Lymphocytes % 14.2 12/08/17 16:05 Monocytes % 4.6 12/08/17 16:05 Eosinophils % 0.7 12/08/17 16:05 Basophils % 0.2 12/08/17 16:05 Absolute Neutrophils 20.38 k/cumm (1.2-6.7) H 12/08/17 16:05 Absolute Lymphocytes 3.62 k/cumm (1.2-3.4) H 12/08/17 16:05 Absolute Monocytes 1.17 k/cumm (0.11-0.7) H 12/08/17 16:05 Absolute Eosinophils 0.18 k/cumm (0.0-0.7) 12/08/17 16:05 Absolute Basophils 0.05 k/cumm (0.0-0.2) 12/08/17 16:05 Differential Comment Agrees w/ instrument 12/08/17 16:05 RBC Morphology Normal 12/08/17 16:05 D-Dimer 339 ng/mlFEU (<500) 12/08/17 16:05 Sample Site Right radial 12/08/17 19:10 pCO2 41 mmHg (34-47) 12/08/17 19:10 pO2 58 mmHg (83-108) L 12/08/17 19:10 O2 Saturation 89 % (94-98) L 12/08/17 19:10 ABG pH 7.37 (7.35-7.45) 12/08/17 19:10 ABG HCO3 24 mmol/L (22-28) 12/08/17 19:10 ABG Total CO2 22 mmol/L (22-29) 12/08/17 19:10 ABG Base Excess -1.5 mmol/L (-3-3) 12/08/17 19:10 Oxygen Liter Flow 3 L 12/08/17 19:10 FiO2 Cannula % 12/08/17 19:10 Sodium 141 mmol/L (136-145) 12/09/17 09:10 Potassium 4.4 mmol/L (3.5-5.1) 12/09/17 09:10 Chloride 111 mmol/L (98-107) H 12/09/17 09:10 Carbon Dioxide 22.2 mmol/L (21.0-32.0) 12/09/17 09:10 Anion Gap 7.8 mmol/L (3-11) 12/09/17 09:10 BUN 9 mg/dL (7-18) 12/09/17 09:10 Creatinine 0.56 mg/dL (0.55-1.02) 12/09/17 09:10 Estimated GFR/1.73 m2 >= 60.00 (mL/min/1.73m2) 12/09/17 09:10 Glucose 110 mg/dL (70-100) H 12/09/17 09:10 Lactate 0.5 mmol/L (0.6-1.4) L 12/08/17 17:45 Calcium 7.7 mg/dL (8.5-10.1) L 12/09/17 09:10 Magnesium 2.0 mg/dL (1.8-2.4) 12/08/17 16:05 Total Bilirubin 0.6 mg/dL (0.2-1.0) 12/08/17 16:05 AST 54 U/L (15-37) H 12/08/17 16:05 ALT 81 U/L (12-78) H 12/08/17 16:05 Alkaline Phosphatase 163 U/L (46-116) H 12/08/17 16:05 Troponin I < 0.02 ng/mL (0.00-0.06) 12/08/17 16:05 Total Protein 8.1 g/dL (6.4-8.2) 12/08/17 16:05 Albumin 3.5 g/dL (3.4-5.0) 12/08/17 16:05 TSH 0.40 uIU/mL (0.358-3.74) 12/09/17 09:10 Vancomycin Trough 3.1 ug/mL (10.0-20.0) L 12/09/17 09:10 Urine Opiates Screen Negative (Negative) 12/08/17 20:05 Urine Methadone Screen Positive (Negative) 12/08/17 20:05 Ur Barbiturates Screen Negative (Negative) 12/08/17 20:05 Ur Tricyclics Screen Negative (Negative) 12/08/17 20:05 Ur Amphetamines Screen Negative (Negative) 12/08/17 20:05 U Benzodiazepines Scrn Negative (Negative) 12/08/17 20:05 Olmito And Olmito 0.30 mmol/L (0.60-1.20) L 12/09/17 09:10 Urine Cocaine Screen Negative (Negative) 12/08/17 20:05 Ur THC Screen Negative (Negative) 12/08/17 20:05 Objective Narrative Objective Narrative: Chest x-ray PA and lateral today showed a right lower lobe infiltrate
[2017-12-09] MEDS: Lithium Carbonate 150 MG CAP 300 MG PO ×2 (20:35)
[2017-12-10] VITALS (21 sets, daily range): BP systolic 110–136; BP diastolic 52–86; PULSE 67–84; RESP 21–31; TEMP 36.5–36.6; O2SAT 83–94
[2017-12-10] MEDS: hydrOXYzine PAMOATE 25 MG CAP 50 MG PO ×2 (02:15→07:37)
[2017-12-10] MEDS: VANCOMYCIN 1,000 MG in Normal Saline 250 ML 166.667 MG IVPB (02:20)
--- NOTE | 2017-12-10 05:47 | NUR.NOTE ---
At 2240hrs, 09 Dec 2017, Skye of [facility] called to notify that this Pt has Gram + Cocci growing in the Anerobic Bottle. I called and notified Dr Ospina with no new orders.Nursing Note:
--- NOTE | 2017-12-10 07:12 | PDOC.CMDIS ---
- If Service Date Differs Date of service: 12/10/17 Time of Service: 07:12 LACE Index Scoring Tool - Questions: Length of Stay (in days): 3 Acuity (Admit via E.D.?): Yes Comorbidities: Diabetes w/o Complication, Chronic Pulmonary Disease E.D. Visits: 2 - Answers: Total Score: 11 Risk of Readmission: High Risk Care Management Discharge Reason for Hospitalization: COPD, pneumonia. Discharge Plan: June will discharge home when medically ready per MD. Anticipate patient will discharge with no services and follow up with her PCP. June will transport with [facility]. Patient/Family Education Needs: Discharge education, any limitations and follow up plan of care. Ask Me Three discussion.
[2017-12-10] MEDS: Methadone Liquid 10 MG/ML 100 MG PO (07:35)
[2017-12-10] MEDS: Esomeprazole 40 MG CAPCR PO (07:37)
[2017-12-10] MEDS: Lithium Carbonate 150 MG CAP 300 MG PO (07:37)
[2017-12-10] MEDS: predniSONE 20 MG TAB 40 MG PO (07:38)
[2017-12-10] MEDS: Gabapentin 800 MG TAB 1600 MG PO (07:38)
[2017-12-10] MEDS: Acetaminophen 325 MG TAB 650 MG PO (07:38)
[2017-12-10] MEDS: FLUoxetine 20 MG CAP 40 MG PO (07:38)
[2017-12-10 08:50] LABS: Abs Immature Grans 0.08 k/cumm (0.0-0.09); Absolute Basophil Count 0.02 k/cumm (0.0-0.2); Absolute Lymphocyte Count 3.61 k/cumm (1.2-3.4); Absolute Neutrophil Count 15.96 k/cumm (1.2-6.7); Basophils % 0.1; Eosinophils % 0.4; HCT 35.1 % (36.0-46.0); HGB 10.8 g/dL (12.0-15.5); Immature Grans % 0.4; Lymphocytes % 17.3; Mean Corp. HGB Concentration 30.8 g/dL (32.0-36.0); Mean Corpuscular Hemoglobin 27.7 pg (27.0-33.0); Mean Platelet Volume 10.5 fL (8.0-11.0); Monocytes % 5.3; Neutrophils % 76.5; Platelet Count 260 x1000/uL (130-400); RBC Distribution Width 16.5 % (11.7-14.6); White Blood Cell Count 20.86 k/cumm (4.4-10.8)
[2017-12-10 08:53] LABS: Absolute Eosinophil Count 0.08 k/cumm (0.0-0.7); Absolute Monocyte Count 1.11 k/cumm (0.11-0.7)
[2017-12-10 08:58] LABS: Anion Gap 6.6 mmol/L (3-11); BUN 13 mg/dL (7-18); CO2 26.4 mmol/L (21.0-32.0); CREATININE 0.62 mg/dL (0.55-1.02); Calcium 8.1 mg/dL (8.5-10.1); Chloride 107 mmol/L (98-107); Glucose 73 mg/dL (70-100); Potassium 4.2 mmol/L (3.5-5.1); Sodium 140 mmol/L (136-145)
[2017-12-10 09:03] LABS: Vancomycin, Trough 17.6 ug/mL (10.0-20.0)
[2017-12-10] MEDS: VANCOMYCIN 1,000 MG in Normal Saline 250 ML 166 MG IVPB (09:41)
--- NOTE | 2017-12-10 12:16 | NUR.NOTE ---
Nursing Note: 1045- Dr. Mckee in room to see patient. Dr. Mckee discussed concerns regarding the blood cultures resulting in a staphylococcus species, having bacteria in the blood stream. This has not been completely worked up and Dr. Mckee recommended patient stay overnight tonight to receive IV Vancomycin and continue workup. If patient experiences fevers, palpitations, and/or chest pain at home, recommendations is to return to the hospital to be reevaluated as soon as possible.
--- NOTE | 2017-12-10 18:11 | DSE_ITS ---
Date of service: 12/10/17 Time of Service: 12:07 DS: Diagnosis Discharge Diagnosis (1) Pneumonia: Status: Acute Asessment and Plan: Right lower lobe pneumonia by chest Xray, he was empirically treated with vancomycin and aztreonam because of multiple drug allergies. She did show improvement during her stay but still had an oxygen requirement. She decided to leave AGAINST MEDICAL ADVICE on hospital day 3. He was empirically started on doxycycline 100 mg p.o. twice daily x7 more days. (2) COPD (chronic obstructive pulmonary disease): Status: Chronic Asessment and Plan: Ongoing tobacco abuse. She was started on p.o. prednisone 40 mg daily x7 more days. (3) Diabetes: Status: Chronic Asessment and Plan: Blood sugars were well-controlled during her stay here. Continue present meds. (4) Substance abuse: Status: Acute Asessment and Plan: On methadone via [facility]AA RT. She denies any IV drug abuse times the last 4 years. (5) Seizure: Status: Suspected Asessment and Plan: She was maintained on her usual seizure meds while here. No seizure activity was observed. Discharge Plan Disposition Patient Disposition: AGAINST MEDICAL ADVICE Condition: Fair Discharge Details Reason For Visit: PNEUMONIA, COPD Admit Date/Time: 12/08/17 19:14 Admit Provider: Hayden Garza Attending Provider: Hayden Garza Primary Care Provider: Raya Rice Hospital Course Hospital Course: This is a 37-year-old woman admitted on 12/08/2017 with worsening shortness of breath and cough. She was found to have a right lower lobe infiltrate. Blood cultures taken on admission have come back positive 1 out of 2 bottles for gram- positive cocci, staph species. She was empirically started on vancomycin and aztreonam because of her multiple drug allergies. She was on appropriate antibiotics but unfortunately cannot wait for further identification of the bacteria nor can she wait for further workup of possible staph aureus bacteremia. We discussed echocardiogram further blood culture surveillance. She understands this but states she has to take care of her mother and cannot wait. She said she would come back if she began to feel ill. She is adamant she feels better and wants to go home. Home Meds and New Rx's Prescriptions: New insulin detemir U-100 [Levemir FlexTouch U-100 Insuln] 100 unit/mL (3 mL) Insulin Pen 20 unit subcut HS Qty: 15 RF: 0 doxycycline hyclate 100 mg tablet 100 mg PO BID Qty: 14 RF: 0 prednisone 20 mg Tablet 40 mg PO DAILY Qty: 14 RF: 0 Continue albuterol sulfate 8.5 GM HFA aerosol inhaler 2 puff Inhalation Q6H PRN PRNRF: 0 methadone 10 MG/ML concentrate 100 mg PO DAILY RF: 0 albuterol sulfate 2.5 MG/3 ML solution for nebulization 2.5 mg Inhalation Q2H PRN (Reason: bronchospasm) Qty: 90 RF: 3 esomeprazole magnesium [Nexium] 40 MG capsule,delayed release(DR/EC) 40 mg PO DAILY RF: 0 propranolol 20 MG tablet 80 mg PO DAILY RF: 0 hydroxyzine pamoate [Vistaril] 25 MG capsule 50 mg PO QID RF: 0 gabapentin 600 MG tablet 1,600 mg PO TID RF: 0 fluoxetine 20 MG capsule 40 mg PO BID RF: 0 zolpidem 10 MG tablet 10 mg PO HS RF: 0 insulin lispro [Humalog KwikPen Insulin] 100 UNIT/ML insulin pen 3 unit SQ PRN PRNRF: 0 Discontinued insulin detemir U-100 [Levemir Flexpen] 100 UNIT/1 ML insulin pen 34 units Sub-Q DAILY RF: 0 albuterol sulfate 2.5 MG/3 ML solution for nebulization 1 ea Inhalation PRN PRNRF: 0 No Action lithium carbonate 300 mg Tablet Extended Release 300 mg PO BID RF: 0 Discharge Instructions Instructions: Endocarditis (DC), Bacterial Pneumonia (DC) Additional Instructions: You have bacteria in your bloodstream. This has not been fully worked up. This could be a dangerous bacteria that could cause valve problems in your heart. You should stay in the hospital and receive intravenous antibiotics until this has been fully worked up. If you have further problems at home with fevers, palpitations, chest pain you should be reevaluated as soon as possible. Activity:: Activity as Tolerated Equipment/Supplies:: No Equipment Needed Diet:: As Tolerated Discharge Orders Discharge Orders: Discharge Order (Routine); Ordered 12/10/17 Ordered By: Terry Mckee Discharge Data Discharge Date/Time-TO BE ENTERED AT DEPARTURE: 12/10/17 11:55 Discharge Comment: Patient left AMA to home Exam Narrative Exam Narrative: Her exam showed her to be in no significant distress. She still had some decreased breath sounds at the right base. There were some expiratory wheezes. Overall lungs were generally clear and respiratory effort was good. She did have paroxysms of a mild cough. Of note she was still on oxygen supplementation at the time she signed out AMA. DS: Data Vitals/I&O Vitals and I&O: Vital Signs Temperature 36.5 C 12/10/17 07:29 Temperature Source Temporal Artery Scan 12/10/17 07:29 Pulse 79 12/10/17 07:29 Pulse Rhythm Regular 12/10/17 07:45 Pulse 80 12/10/17 07:27 Respiratory Rate 24 12/10/17 07:29 Respiratory Effort Non-Labored 12/10/17 07:45 Respiratory Depth Normal 12/10/17 07:45 Respiratory Pattern Normal 12/10/17 07:45 Blood Pressure 136/86 12/10/17 07:29 Blood Pressure Mean 98 12/10/17 07:27 Blood Pressure Position Supine 12/10/17 00:05 Pulse Oximetry 83 L 12/10/17 11:49 Oxygen Delivery Method Room Air 12/10/17 11:49 Oxygen Flow Rate 0 12/10/17 11:49 Pain Level 2 12/10/17 08:38 Intake & Output 12/09/17 12/10/17 12/10/17 23:59 11:59 23:59 Intake Total 1830 / 1830 1240 / 1240 Output Total 2150 / 2150 1275 / 1275 Balance -320 / -320 -35 / -35 Weight 92.5 kg Intake: IV 1050 / 1050 1000 / 1000 Oral 780 / 780 240 / 240 Output: Urine 2050 / 2050 1275 / 1275 Stool 100 / 100 Other: Urine Color Yellow Straw Urine Appearance Clear Clear Urine Odor Normal None Comment Mixed with loose stool. Mixed with stool. Stool Size Moderate Stool Characteristics Brown Soft Formed Voiding Methods Bedside Commode Bedside Commode Pending studies at discharge: WBC 20.86 k/cumm (4.4-10.8) H D 12/10/17 08:35 RBC 3.90 m/cumm (4.00-5.20) L 12/10/17 08:35 Hgb 10.8 g/dL (12.0-15.5) L 12/10/17 08:35 Hct 35.1 % (36.0-46.0) L 12/10/17 08:35 MCV 90.0 fL (80-95) 12/10/17 08:35 MCH 27.7 pg (27.0-33.0) 12/10/17 08:35 MCHC 30.8 g/dL (32.0-36.0) L 12/10/17 08:35 RDW 16.5 % (11.7-14.6) H 12/10/17 08:35 Plt Count 260 x1000/uL (130-400) 12/10/17 08:35 MPV 10.5 fL (8.0-11.0) 12/10/17 08:35 Immature Gran % 0.4 12/10/17 08:35 Neutrophils % 76.5 12/10/17 08:35 Lymphocytes % 17.3 12/10/17 08:35 Monocytes % 5.3 12/10/17 08:35 Eosinophils % 0.4 12/10/17 08:35 Basophils % 0.1 12/10/17 08:35 Absolute Neutrophils 15.96 k/cumm (1.2-6.7) H 12/10/17 08:35 Absolute Lymphocytes 3.61 k/cumm (1.2-3.4) H 12/10/17 08:35 Absolute Monocytes 1.11 k/cumm (0.11-0.7) H 12/10/17 08:35 Absolute Eosinophils 0.08 k/cumm (0.0-0.7) 12/10/17 08:35 Absolute Basophils 0.02 k/cumm (0.0-0.2) 12/10/17 08:35 Differential Comment Agrees w/ instrument 12/08/17 16:05 RBC Morphology Normal 12/08/17 16:05 D-Dimer 339 ng/mlFEU (<500) 12/08/17 16:05 Sample Site Right radial 12/08/17 19:10 pCO2 41 mmHg (34-47) 12/08/17 19:10 pO2 58 mmHg (83-108) L 12/08/17 19:10 O2 Saturation 89 % (94-98) L 12/08/17 19:10 ABG pH 7.37 (7.35-7.45) 12/08/17 19:10 ABG HCO3 24 mmol/L (22-28) 12/08/17 19:10 ABG Total CO2 22 mmol/L (22-29) 12/08/17 19:10 ABG Base Excess -1.5 mmol/L (-3-3) 12/08/17 19:10 Oxygen Liter Flow 3 L 12/08/17 19:10 FiO2 Cannula % 12/08/17 19:10 Sodium 140 mmol/L (136-145) 12/10/17 08:35 Potassium 4.2 mmol/L (3.5-5.1) 12/10/17 08:35 Chloride 107 mmol/L (98-107) 12/10/17 08:35 Carbon Dioxide 26.4 mmol/L (21.0-32.0) 12/10/17 08:35 Anion Gap 6.6 mmol/L (3-11) 12/10/17 08:35 BUN 13 mg/dL (7-18) 12/10/17 08:35 Creatinine 0.62 mg/dL (0.55-1.02) 12/10/17 08:35 Estimated GFR/1.73 m2 >= 60.00 (mL/min/1.73m2) 12/10/17 08:35 Glucose 73 mg/dL (70-100) 12/10/17 08:35 Lactate 0.5 mmol/L (0.6-1.4) L 12/08/17 17:45 Calcium 8.1 mg/dL (8.5-10.1) L 12/10/17 08:35 Magnesium 2.0 mg/dL (1.8-2.4) 12/08/17 16:05 Total Bilirubin 0.6 mg/dL (0.2-1.0) 12/08/17 16:05 AST 54 U/L (15-37) H 12/08/17 16:05 ALT 81 U/L (12-78) H 12/08/17 16:05 Alkaline Phosphatase 163 U/L (46-116) H 12/08/17 16:05 Troponin I < 0.02 ng/mL (0.00-0.06) 12/08/17 16:05 Total Protein 8.1 g/dL (6.4-8.2) 12/08/17 16:05 Albumin 3.5 g/dL (3.4-5.0) 12/08/17 16:05 TSH 0.40 uIU/mL (0.358-3.74) 12/09/17 09:10 Vancomycin Trough 17.6 ug/mL (10.0-20.0) 12/10/17 08:35 Urine Opiates Screen Negative (Negative) 12/08/17 20:05 Urine Methadone Screen Positive (Negative) 12/08/17 20:05 Ur Barbiturates Screen Negative (Negative) 12/08/17 20:05 Ur Tricyclics Screen Negative (Negative) 12/08/17 20:05 Ur Amphetamines Screen Negative (Negative) 12/08/17 20:05 U Benzodiazepines Scrn Negative (Negative) 12/08/17 20:05 [place] 0.30 mmol/L (0.60-1.20) L 12/09/17 09:10 Urine Cocaine Screen Negative (Negative) 12/08/17 20:05 Ur THC Screen Negative (Negative) 12/08/17 20:05 Labs on day of discharge: Labs from last 24 hours 12/10/17 12/10/17 12/10/17 08:35 08:35 08:35 WBC 20.86 H D RBC 3.90 L Hgb 10.8 L Hct 35.1 L MCV 90.0 MCH 27.7 MCHC 30.8 L RDW 16.5 H Plt Count 260 MPV 10.5 Immature Gran % 0.4 Neutrophils % 76.5 Lymphocytes % 17.3 Monocytes % 5.3 Eosinophils % 0.4 Basophils % 0.1 Absolute Neutrophils 15.96 H Absolute Lymphocytes 3.61 H Absolute Monocytes 1.11 H Absolute Eosinophils 0.08 Absolute Basophils 0.02 Sodium 140 Potassium 4.2 Chloride 107 Carbon Dioxide 26.4 Anion Gap 6.6 BUN 13 Creatinine 0.62 Estimated GFR/1.73 m2 >= 60.00 Glucose 73 Calcium 8.1 L Vancomycin Trough 17.6 Preliminary micro results at discharge 12/08/17 19:40 Blood Culture - Preliminary Blood Staph Sp., Not Aureus 12/08/17 18:50 Blood Culture - Preliminary Blood NO GROWTH 24 HOURS
== END 2017-12-10 11:55 | disposition left against medical advice (07) ==
LOC: ER 20:05 → ICU 12-09 06:57
PROVIDERS: Nurse Practitioner Family; Admitting Provider General Practice; Emergency Provider Physician Assistant; PCP Nurse Practitioner Family; Visit Provider Family Medicine
DX: J44.0 Chronic obstructive pulmonary disease with (acute) lower respiratory infection (principal); J18.9 Pneumonia, unspecified organism; R78.81 Bacteremia; R09.02 Hypoxemia; F11.20 Opioid dependence, uncomplicated; F17.210 Nicotine dependence, cigarettes, uncomplicated; Z53.29 Procedure and treatment not carried out because of patient's decision for other reasons; I95.9 Hypotension, unspecified; R00.1 Bradycardia, unspecified; T44.4X5A Adverse effect of predominantly alpha-adrenoreceptor agonists, initial encounter; F19.11 Other psychoactive substance abuse, in remission; Z79.4 Long term (current) use of insulin; G40.909 Epilepsy, unspecified, not intractable, without status epilepticus; B19.20 Unspecified viral hepatitis C without hepatic coma; F31.9 Bipolar disorder, unspecified; K21.9 Gastro-esophageal reflux disease without esophagitis
CPT/HCPCS: 36415; 36556; 80048; 80053; 80307; 82805; 85027; 87040; 87077; 93005; 94640; 94644; 94645; 96361; 96365; 96366; 96367; 96368; 96375; 99291; 99292; 36600; 71045; 71046; 80178; 80202; 83605; 83735; 84443; 84484; 85025; 85379; 87186; 93010; 99217; 99220; 99225; G0378; J2930; J3490; J7512; J7613

== ENCOUNTER 2017-12-10 15:03 | Inpatient (IN) | payer MEDICAID, SELFPAY ==
[2017-12-10] VITALS (27 sets, daily range): BP systolic 92–138; BP diastolic 58–88; PULSE 63–101; RESP 4–47; TEMP 36.2–38.3; O2SAT 82–97
--- NOTE | 2017-12-10 15:14 | W.ED.GENAD ---
Discharge Plan Disposition Patient Disposition: [facility] INPATIENT Condition: Good Discharge Details Chief Complaint: SOB Clinical Impression: Pneumonia Primary Care Provider: Raya Rice ED Provider: Costa Peralta Home Meds and New Rx's Prescriptions: No Action albuterol sulfate 8.5 GM HFA aerosol inhaler 2 puff Inhalation Q6H PRN PRNRF: 0 methadone 10 MG/ML concentrate 100 mg PO DAILY RF: 0 insulin detemir U-100 [Levemir FlexTouch U-100 Insuln] 100 unit/mL (3 mL) Insulin Pen 20 unit subcut HS Qty: 15 RF: 0 doxycycline hyclate 100 mg tablet 100 mg PO BID Qty: 14 RF: 0 albuterol sulfate 2.5 MG/3 ML solution for nebulization 2.5 mg Inhalation Q2H PRN (Reason: bronchospasm) Qty: 90 RF: 3 prednisone 20 mg Tablet 40 mg PO DAILY Qty: 14 RF: 0 esomeprazole magnesium [Nexium] 40 MG capsule,delayed release(DR/EC) 40 mg PO DAILY RF: 0 propranolol 20 MG tablet 80 mg PO DAILY RF: 0 hydroxyzine pamoate [Vistaril] 25 MG capsule 50 mg PO QID RF: 0 gabapentin 600 MG tablet 1,600 mg PO TID RF: 0 fluoxetine 20 MG capsule 40 mg PO BID RF: 0 zolpidem 10 MG tablet 10 mg PO HS RF: 0 insulin lispro [Humalog KwikPen Insulin] 100 UNIT/ML insulin pen 3 unit SQ PRN PRNRF: 0 Medical Decision Making This is a 37-year-old female with a past medical history of hepatitis C, reactive airway disease, who was recently in the ICU just 12 hours ago but left AGAINST MEDICAL ADVICE this morning because she thought she felt better. She was on oxygen here in the hospital, as soon as she got home she was short of breath and regretted her decision. Physical exam demonstrates continued wheeze, rhonchi, and rales. WBC level on discharge appears to be 20, however lactate was normal. She was on vancomycin and aztreonam for her pneumonia. She has never been intubated before for pneumonia. She is currently hypoxic and is requiring supplemental oxygen to maintain normal O2 status. We will contact the hospitalist for potential reevaluation of her case. I feel that she does require inpatient admission secondary to her hypoxemia. 3:37 I discussed the case with Dr. goins, he agrees with the patient's need for readmission. Patient will be admitted to the floor. I will place a ultrasound-guided IV. Patient will be admitted to the floor. I have extensively reviewed the treatment plan with the patient. I have addressed all patient concerns at this time. I have also discussed the plan with the admitting physician and they agree with the current assessment and plan and have agreed to assume responsibility for the patient. All parties demonstrate verbal understanding and agreement with our assessment and plan at this time. HPI General Date/Time Provider Initiated Documentation: 12/10/17 15:13. HPI Narrative: This is a 37-year-old female with a past medical history of asthma/COPD, diabetes, history of substance abuse in the past, now taking methadone, poor IV access, hepatitis C. She was just admitted within the last 3 days to the hospital, she was in the ICU for pneumonia, hypoxemia, and unfortunately left AGAINST MEDICAL ADVICE this morning. She was on oxygen the entire time that she was here, and per records it does appear that she was on vancomycin and aztreonam secondary to allergies. She left and went home, however as soon as she got home she was extremely short of breath, felt horrible, and states that I regretted my decision. Currently she admits to continued cough, shortness of breath, and productive sputum with her cough. She does not have home oxygen. She did not feel safe at home. She has no other complaints at this time. Related Data Home Medications Medication Instructions Recorded Confirmed albuterol sulfate 2 puff INHALATION Q6H PRN PRN 10/10/13 12/08/17 methadone 100 mg PO DAILY 10/11/15 12/08/17 esomeprazole magnesium [Nexium] 40 mg PO DAILY 02/08/16 12/08/17 fluoxetine 40 mg PO BID 02/08/16 12/08/17 gabapentin 1,600 mg PO TID 02/08/16 12/08/17 hydroxyzine pamoate [Vistaril] 50 mg PO QID 02/08/16 12/08/17 propranolol 80 mg PO DAILY 02/08/16 12/08/17 insulin lispro [Humalog KwikPen 3 unit SQ PRN PRN 07/18/17 12/08/17 Insulin] zolpidem 10 mg PO HS 07/18/17 12/08/17 albuterol sulfate 2.5 mg INHALATION Q2H PRN #90 ml 12/10/17 12/08/17 doxycycline hyclate 100 mg PO BID #14 tab 12/10/17 insulin detemir U-100 [Levemir 20 unit SUBCUT HS #15 ml 12/10/17 FlexTouch U-100 Insuln] prednisone 40 mg PO DAILY #14 tab 12/10/17 Previous Rx's Medication Instructions Recorded albuterol sulfate 2.5 mg INHALATION Q2H PRN #90 ml 12/10/17 doxycycline hyclate 100 mg PO BID #14 tab 12/10/17 insulin detemir U-100 [Levemir 20 unit SUBCUT HS #15 ml 12/10/17 FlexTouch U-100 Insuln] prednisone 40 mg PO DAILY #14 tab 12/10/17 Allergies Allergy/AdvReac Type Severity Reaction Status Date / Time Penicillins Allergy Severe Anaphylaxsi Unverified 07/18/17 18:45 s Sulfa (Sulfonamide Allergy Severe Anaphylaxsi Unverified 07/18/17 18:45 Antibiotics) s General Stated Complaint: SOB NANI: 2 Review of Systems Review of Systems All systems reviewed & are unremarkable except as noted in HPI and below PFSH Social History Smoking/Tobacco Use Status: Current every day Exam Narrative Exam Narrative: 1.Const: Well-nourished, Well-developed, appearing stated age 2.Eyes: PERRL, no conjunctival injection, and symmetrical lids. 3.ENT: Atraumatic external nose and ears. Dry MM. Neck: Symmetric, trachea midline, No thyromegaly. 4.CVS: +S1/S2, No loud murmurs or gallops. Peripheral pulses 2+ and equal in all extremities. Brisk capillary refill in all extremities. 5.RESP: Mild tachypnea, notable rales and rhonchi throughout. Coarse breath sounds. Wheezes appreciated throughout 6.GI: Soft, Nontender/Nondistended, No hepatosplenomegaly. No guarding or rebound. 7.MSK: Normocephalic/Atraumatic, Extremities w/o deformity or ttp No cyanosis or clubbing, Normal movement of all extremities 8.Skin: Warm, Dry. No rashes or lesions. Multiple old scars over her upper and lower extremities from most likely small abscesses versus old injection sites. 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 Sensation grossly intact, no focal neurologic deficits. 10.Psych: (AAO) x3. Appropriate mood and affect Course Vital Signs Temperature 36.8 C 12/10/17 15:10 Pulse Oximetry 88 L 12/10/17 15:10 Temperature 36.8 C 12/10/17 15:10 Respiratory Effort 12/10/17 15:13 Pulse Oximetry 88 L 12/10/17 15:10 Oxygen Delivery Method Room Air 12/10/17 15:10 Oxygen Flow Rate 0 12/10/17 15:10 Comment 12/10/17 15:10
--- NOTE | 2017-12-10 15:21 | ED.GENADUL_ITS ---
Discharge Plan Disposition Patient Disposition: [facility] INPATIENT Condition: Good Discharge Details Chief Complaint: SOB Clinical Impression: Pneumonia Primary Care Provider: Raya Rice ED Provider: Costa Peralta Home Meds and New Rx's Prescriptions: No Action albuterol sulfate 8.5 GM HFA aerosol inhaler 2 puff Inhalation Q6H PRN PRNRF: 0 methadone 10 MG/ML concentrate 100 mg PO DAILY RF: 0 insulin detemir U-100 [Levemir FlexTouch U-100 Insuln] 100 unit/mL (3 mL) Insulin Pen 20 unit subcut HS Qty: 15 RF: 0 doxycycline hyclate 100 mg tablet 100 mg PO BID Qty: 14 RF: 0 albuterol sulfate 2.5 MG/3 ML solution for nebulization 2.5 mg Inhalation Q2H PRN (Reason: bronchospasm) Qty: 90 RF: 3 prednisone 20 mg Tablet 40 mg PO DAILY Qty: 14 RF: 0 esomeprazole magnesium [Nexium] 40 MG capsule,delayed release(DR/EC) 40 mg PO DAILY RF: 0 propranolol 20 MG tablet 80 mg PO DAILY RF: 0 hydroxyzine pamoate [Vistaril] 25 MG capsule 50 mg PO QID RF: 0 gabapentin 600 MG tablet 1,600 mg PO TID RF: 0 fluoxetine 20 MG capsule 40 mg PO BID RF: 0 zolpidem 10 MG tablet 10 mg PO HS RF: 0 insulin lispro [Humalog KwikPen Insulin] 100 UNIT/ML insulin pen 3 unit SQ PRN PRNRF: 0 Medical Decision Making This is a 37-year-old female with a past medical history of hepatitis C, reactive airway disease, who was recently in the ICU just 12 hours ago but left AGAINST MEDICAL ADVICE this morning because she thought she felt better. She was on oxygen here in the hospital, as soon as she got home she was short of breath and regretted her decision. Physical exam demonstrates continued wheeze, rhonchi, and rales. WBC level on discharge appears to be 20, however lactate was normal. She was on vancomycin and aztreonam for her pneumonia. She has never been intubated before for pneumonia. She is currently hypoxic and is requiring supplemental oxygen to maintain normal O2 status. We will contact the hospitalist for potential reevaluation of her case. I feel that she does require inpatient admission secondary to her hypoxemia. 3:37 I discussed the case with Dr. goins, he agrees with the patient's need for readmission. Patient will be admitted to the floor. I will place a ultrasound- guided IV. Patient will be admitted to the floor. I have extensively reviewed the treatment plan with the patient. I have addressed all patient concerns at this time. I have also discussed the plan with the admitting physician and they agree with the current assessment and plan and have agreed to assume responsibility for the patient. All parties demonstrate verbal understanding and agreement with our assessment and plan at this time. HPI General Date/Time Provider Initiated Documentation: 12/10/17 15:13 . HPI Narrative: This is a 37-year-old female with a past medical history of asthma/COPD, diabetes, history of substance abuse in the past, now taking methadone, poor IV access, hepatitis C. She was just admitted within the last 3 days to the hospital, she was in the ICU for pneumonia, hypoxemia, and unfortunately left AGAINST MEDICAL ADVICE this morning. She was on oxygen the entire time that she was here, and per records it does appear that she was on vancomycin and aztreonam secondary to allergies. She left and went home, however as soon as she got home she was extremely short of breath, felt horrible , and states that I regretted my decision. Currently she admits to continued cough, shortness of breath, and productive sputum with her cough. She does not have home oxygen. She did not feel safe at home. She has no other complaints at this time. Related Data Home Medications Medication Instructions Recorded Confirmed albuterol sulfate 2 puff INHALATION Q6H PRN PRN 10/10/13 12/08/17 methadone 100 mg PO DAILY 10/11/15 12/08/17 esomeprazole magnesium [Nexium] 40 mg PO DAILY 02/08/16 12/08/17 fluoxetine 40 mg PO BID 02/08/16 12/08/17 gabapentin 1,600 mg PO TID 02/08/16 12/08/17 hydroxyzine pamoate [Vistaril] 50 mg PO QID 02/08/16 12/08/17 propranolol 80 mg PO DAILY 02/08/16 12/08/17 insulin lispro [Humalog KwikPen 3 unit SQ PRN PRN 07/18/17 12/08/17 Insulin] zolpidem 10 mg PO HS 07/18/17 12/08/17 albuterol sulfate 2.5 mg INHALATION Q2H PRN #90 ml 12/10/17 12/08/17 doxycycline hyclate 100 mg PO BID #14 tab 12/10/17 insulin detemir U-100 [Levemir 20 unit SUBCUT HS #15 ml 12/10/17 FlexTouch U-100 Insuln] prednisone 40 mg PO DAILY #14 tab 12/10/17 Previous Rx's Medication Instructions Recorded albuterol sulfate 2.5 mg INHALATION Q2H PRN #90 ml 12/10/17 doxycycline hyclate 100 mg PO BID #14 tab 12/10/17 insulin detemir U-100 [Levemir 20 unit SUBCUT HS #15 ml 12/10/17 FlexTouch U-100 Insuln] prednisone 40 mg PO DAILY #14 tab 12/10/17 Allergies Allergy/AdvReac Type Severity Reaction Status Date / Time Penicillins Allergy Severe Anaphylaxsi Unverified 07/18/17 18:45 s Sulfa (Sulfonamide Allergy Severe Anaphylaxsi Unverified 07/18/17 18:45 Antibiotics) s General Stated Complaint: SOB NANI: 2 Review of Systems Review of Systems All systems reviewed & are unremarkable except as noted in HPI and below PFSH Social History Smoking/Tobacco Use Status: Current every day Exam Narrative Exam Narrative: 1.Const: Well-nourished, Well-developed, appearing stated age 2.Eyes: PERRL, no conjunctival injection, and symmetrical lids. 3.ENT: Atraumatic external nose and ears. Dry MM. Neck: Symmetric, trachea midline, No thyromegaly. 4.CVS: +S1/S2, No loud murmurs or gallops. Peripheral pulses 2+ and equal in all extremities. Brisk capillary refill in all extremities. 5.RESP: Mild tachypnea, notable rales and rhonchi throughout. Coarse breath sounds. Wheezes appreciated throughout 6.GI: Soft, Nontender/Nondistended, No hepatosplenomegaly. No guarding or rebound. 7.MSK: Normocephalic/Atraumatic, Extremities w/o deformity or ttp No cyanosis or clubbing, Normal movement of all extremities 8.Skin: Warm, Dry. No rashes or lesions. Multiple old scars over her upper and lower extremities from most likely small abscesses versus old injection sites. 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 Sensation grossly intact, no focal neurologic deficits. 10.Psych: (AAO) x3. Appropriate mood and affect Course Vital Signs Temperature 36.8 C 12/10/17 15:10 Pulse Oximetry 88 L 12/10/17 15:10 Temperature 36.8 C 12/10/17 15:10 Respiratory Effort 12/10/17 15:13 Pulse Oximetry 88 L 12/10/17 15:10 Oxygen Delivery Method Room Air 12/10/17 15:10 Oxygen Flow Rate 0 12/10/17 15:10 Comment 12/10/17 15:10
[2017-12-10] MEDS: Albuterol/Ipratropium 3 ML UPD VIAL UPD ×2 (15:24→23:13)
[2017-12-10] MEDS: Albuterol/Ipratropium 3 ML UPD VIAL (15:57)
--- NOTE | 2017-12-10 17:05 | HPE_ITS ---
Date of service: 12/10/17 Time of Service: 16:55 Assessment and Plan (1) Pneumonia: Current visit: Yes Status: Acute Continued hypoxia, dyspnea. Her O2 sat comes up nicely with just 2-3 L of O2 supplementation. Her lung exam is stable. Will continue on doxycycline 100 mg p.o. twice daily as per outpatient regimen. Trend her white count and follow exam closely. (2) Substance abuse: Current visit: Yes Status: Acute She is on methadone maintenance. We will continue with methadone 100 mg daily. Follow-up with [facility] as outpatient. (3) Diabetes: Current visit: Yes Status: Chronic Continue present meds. Blood sugars have been well controlled on Levemir 20 units at at bedtime. (4) COPD (chronic obstructive pulmonary disease): Current visit: Yes Status: Chronic Ongoing tobacco use disorder. She still has some wheezing. Will continue on prednisone 40 mg daily History of Present Illness Chief Complaint: Right lower lobe pneumonia/hypoxia Narrative: This is a 37-year-old woman who just left [facility] AGAINST MEDICAL ADVICE a few hours ago who arrived via ambulance with severe hypoxia and dyspnea. She had been admitted on 12/08/2017 with pneumonia and COPD exacerbation. She was on vancomycin and aztreonam as well as IV then oral steroids. She did extremely well and was tapering off of her oxygen. Her blood cultures from admission grew 1 out of 2 bottles of gram-positive cocci that have since been identified as staph non-aureus. She returns to continue on oxygen supplementation, antibiotics, steroids, updrafts. Review of Systems Cardiovascular Denies chest pain and Reports dyspnea Respiratory Reports chest congestion, Reports cough and Reports dyspnea Gastrointestinal Denies abdominal pain and Reports loose stools Genitourinary Denies dysuria Musculoskeletal Denies arthralgias Integumentary/Breasts Reports system reviewed and no additional complaints, except as docu Neurologic Reports system reviewed and no additional complaints, except as docu Psychiatric Reports system reviewed and no additional complaints, except as docu [facility] Medical History COPD (chronic obstructive pulmonary disease) (Chronic) Diabetes (Chronic) Substance abuse (Acute) Pneumonia (Acute) Seizure (Suspected 06/27/13) Substance abuse (Acute 06/27/13) Withdrawal symptoms, drug or narcotic (Acute 06/27/13) Chronic hepatitis C (Chronic) Opiate dependence (Chronic) Polysubstance abuse (Chronic) Chronic pain syndrome (Chronic) Bipolar disorder (Chronic) GERD (gastroesophageal reflux disease) (Chronic) Tobacco use disorder (Chronic) Reactive airway disease (Chronic) History of abnormal cervical Pap smear (Chronic) Stomatitis and mucositis (Acute) Social History Smoking/Tobacco Use Status: Current every day Meds Home Medications Medication Instructions Recorded Confirmed Type albuterol sulfate 2 puff INHALATION Q6H PRN PRN 10/10/13 12/10/17 History methadone 100 mg PO DAILY 10/11/15 12/10/17 History esomeprazole magnesium [Nexium] 40 mg PO DAILY 02/08/16 12/10/17 History fluoxetine 40 mg PO BID 02/08/16 12/10/17 History gabapentin 1,600 mg PO TID 02/08/16 12/10/17 History hydroxyzine pamoate [Vistaril] 50 mg PO QID 02/08/16 12/10/17 History propranolol 80 mg PO DAILY 02/08/16 12/10/17 History insulin lispro [Humalog KwikPen 3 unit SQ PRN PRN 07/18/17 12/10/17 History Insulin] zolpidem 10 mg PO HS 07/18/17 12/10/17 History albuterol sulfate 2.5 mg INHALATION Q2H PRN #90 ml 12/10/17 12/10/17 Rx doxycycline hyclate 100 mg PO BID #14 tab 12/10/17 Rx insulin detemir U-100 [Levemir 20 unit SUBCUT HS #15 ml 12/10/17 12/10/17 Rx FlexTouch U-100 Insuln] lithium carbonate 300 mg PO BID 12/10/17 12/10/17 History prednisone 40 mg PO DAILY #14 tab 12/10/17 12/10/17 Rx Allergies Allergy/AdvReac Type Severity Reaction Status Date / Time Penicillins Allergy Severe Anaphylaxsi Unverified 07/18/17 18:45 s Sulfa (Sulfonamide Allergy Severe Anaphylaxsi Unverified 07/18/17 18:45 Antibiotics) s Exam Narrative Exam Narrative: Patient looks generally well, sitting upright on the stretcher. Her pupils are quite dilated but reactive and equal. She had no facial asymmetry, speech was clear, nonfocal neurologic exam. Her breathing was not at all labored she did have paroxysms of an occasional cough. Her lung exam showed some decreased breath sounds and rhonchi particularly in the right base but upper lung [place] sound relatively clear she had been examined earlier today and her wheezing actually was improved. Abdomen was soft and nontender lower extremities showed no evidence of edema. Results Imaging Chest x-ray: report reviewed Labs Sodium 140, potassium 4.2, BUN 13, creatinine 0.62 White count 20.86 thousand, hemoglobin 10.8, hematocrit 35.1, 76 segs/17 lymphs/ no bands Blood culture from 12/08/2017 growing out gram-positive cocci from 1 out of 2 bottles has since been identified as staph non-aureus
[2017-12-10] MEDS: Albuterol 2.5 MG/3 ML INH SOLN VIAL UPD ×2 (18:12→22:03)
[2017-12-10] MEDS: Enoxaparin 40 MG/0.4 ML SYR SC (18:14)
[2017-12-10] MEDS: Doxycycline Hyclate 100 MG CAP PO (19:25)
[2017-12-10] MEDS: FLUoxetine 20 MG CAP 40 MG PO (19:26)
[2017-12-10] MEDS: Gabapentin 800 MG TAB 1600 MG PO (19:27)
[2017-12-10] MEDS: hydrOXYzine PAMOATE 25 MG CAP 50 MG PO (19:27)
[2017-12-10] MEDS: Zolpidem 10 MG TAB PO (20:34)
--- NOTE | 2017-12-10 22:54 | NUR.NOTE ---
Nursing Note: Patient is having increased respiratory difficulty. Patient has had a Albuterol neb x 2 with little effect. Oxygen demand increasing and saturation decreasing. Dr. Ospina notified. He is putting in orders at this time. Respiratory Therapy has been called in to assess the patient and see if she needs positive pressure or Blood gasses done.
[2017-12-10] MEDS: Normal Saline Flush 10 ML SYR IVP (23:14)
[2017-12-10] MEDS: methylPREDNISolone SUCC 125 MG VIAL IVP (23:15)
[2017-12-10 23:59] LABS: BE 1.7 mmol/L (-3-3); pCO2 40 mmHg (34-47); pH 7.42 (7.35-7.45); pO2 63 mmHg (83-108); sO2 93 % (94-98); tCO2 24 mmol/L (22-29)
[2017-12-11] VITALS (14 sets, daily range): BP systolic 118–149; BP diastolic 75–80; PULSE 54–92; RESP 2–36; TEMP 36.5–38.1; O2SAT 92–98
[2017-12-11] LABS: FIO2 30 %; Site Right Radial
[2017-12-11 00:01] LABS: HCO3 26 mmol/L (22-28)
[2017-12-11] MEDS: Normal Saline Flush 10 ML SYR IVP ×2 (00:38→15:50)
[2017-12-11] MEDS: Normal Saline 500 ML 100 ML IV ×2 (00:39→16:33)
[2017-12-11] MEDS: LORazepam 1 MG TAB PO (02:19)
[2017-12-11] MEDS: VANCOMYCIN 1,000 MG in Normal Saline 250 ML 166.6666 MG IVPB (02:21)
[2017-12-11] MEDS: Water,Injection,Bacteriostatic 30 ML VIAL (02:21)
[2017-12-11] MEDS: Albuterol 2.5 MG/3 ML INH SOLN VIAL UPD ×2 (03:27→20:43)
[2017-12-11] MEDS: Albuterol/Ipratropium 3 ML UPD VIAL UPD ×4 (05:31→22:34)
[2017-12-11 07:01] LABS: Anion Gap 8.9 mmol/L (3-11); BUN 8 mg/dL (7-18); CO2 27.1 mmol/L (21.0-32.0); CREATININE 0.53 mg/dL (0.55-1.02); Calcium 8.5 mg/dL (8.5-10.1); Chloride 103 mmol/L (98-107); Glucose 134 mg/dL (70-100); Potassium 3.8 mmol/L (3.5-5.1); Sodium 139 mmol/L (136-145)
[2017-12-11 07:04] LABS: Abs Immature Grans 0.06 k/cumm (0.0-0.09); Absolute Basophil Count 0.01 k/cumm (0.0-0.2); Absolute Eosinophil Count 0.01 k/cumm (0.0-0.7); Absolute Lymphocyte Count 1.62 k/cumm (1.2-3.4); Absolute Monocyte Count 0.18 k/cumm (0.11-0.7); Basophils % 0.1; Eosinophils % 0.1; HCT 34.1 % (36.0-46.0); HGB 10.7 g/dL (12.0-15.5); Immature Grans % 0.5; Lymphocytes % 12.3; Mean Corp. HGB Concentration 31.4 g/dL (32.0-36.0); Mean Corpuscular Hemoglobin 27.6 pg (27.0-33.0); Mean Corpuscular Volume 87.9 fL (80-95); Mean Platelet Volume 10.6 fL (8.0-11.0); Monocytes % 1.4; Neutrophils % 85.6; Platelet Count 258 x1000/uL (130-400); RBC 3.88 m/cumm (4.00-5.20); White Blood Cell Count 13.21 k/cumm (4.4-10.8)
[2017-12-11 07:06] LABS: Absolute Neutrophil Count 11.31 k/cumm (1.2-6.7)
[2017-12-11] MEDS: methylPREDNISolone SUCC 125 MG VIAL IVP ×2 (08:14→15:50)
[2017-12-11] MEDS: Methadone Liquid 10 MG/ML 100 MG PO (08:15)
[2017-12-11] MEDS: Gabapentin 800 MG TAB 1600 MG PO ×3 (08:16→20:36)
[2017-12-11] MEDS: FLUoxetine 20 MG CAP 40 MG PO ×2 (08:16→20:37)
[2017-12-11] MEDS: Esomeprazole 40 MG CAPCR PO (08:16)
[2017-12-11] MEDS: hydrOXYzine PAMOATE 25 MG CAP 50 MG PO ×4 (08:24→20:36)
[2017-12-11] MEDS: Insulin Aspart 300 UNITS/3 ML PEN SC ×6 (08:57→16:58)
--- NOTE | 2017-12-11 10:21 | PDOC.CMIN ---
- If Service Date Differs Date of service: 12/11/17 Time of Service: 10:21 Care Management Initial Assess REASON FOR HOSPITALIZATION:: Pneumonia PAST MEDICAL HISTORY/PAST SURGICAL HISTORY:: Asthma, diabetes, substance abuse disorder, seizures, chronic Hep C., bipolar disorder, GERD, hx abnormal cervical Pap, stomatitis and mucositis. PREVIOUS FUNCTIONAL STATUS/SOCIAL/FAMILY SUPPORTS:: Doretha resides at the [facility] with her mom, Noemi, and an adult friend. She has two children; ages 12 and 10, who do not live with her but reports that she sees them regularly. [facility] In 2011 she moved to [facility] from [place]. 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 Her disability is pending she receives three square meals. She is currently a cient of [facility] and [facility] her med provider is Leann Jackson. CURRENT FUNCTIONAL STATUS:: Doretha is sitting up in the chair she continues to have some shortness of breath at rest. She has an oxygen mask in place. She is engaged with CM. She was able to complete readmission assessment. Doretha is able to articulate the events the led to readmission. She states she thought she would be okay to discharge home until she got there and was not able to tolerate activity. She reports that she did not flower buncher or picker her antibiotic when she was discharged from the hospital. She feels that this admission she will stay until the course of treatment is complete. ADVANCE DIRECTIVES:: None on file at [facility]. Has patient been provided with information about the portal?: Yes Did the patient sign up for the portal?: No CODE STATUS:: Full Code INSURANCE COVERAGE / FINANCIAL ISSUES:: Medicaid. CURRENT HOME/COMMUNITY SERVICES/EQUIPMENT:: [facility], [facility] PRIMARY CARE PHYSICIAN:: Raya Rice APRN POTENTIAL DISCHARGE NEEDS:: Follow up appointment with PCP. PATIENT/FAMILY EDUCATION NEEDS:: Discharge education, any limitations and follow up plan of care. Ask Me Three discussion. ANTICIPATED BARRIERS TO DISCHARGE:: No anticipated barriers to discharge. TRANSPORTATION:: Doretha will transport via [facility] at discharge PLAN:: Doretha will discharge home when medically ready per MD. Anticipate patient will discharge with current community services. CM did review VCCI program through medicaid she declines a this time. CM will continue to offer support to patient and care team regarding discharge planning and disposition. Readmission - Within the Past 30 Days Yes or No: Y - Date of First Admission Date of 1st Admission: 12/08/17 - Date of this Admission Date of Admission: 12/10/17 This admission was: Through ED - Office Visit Since 1st Admission Had an appointment Been Scheduled?: No Describe barriers for scheduling or getting an appointment: Patient left AMA over the weekend - I. Interview patient and/or Family Have you had trouble purchasing/ or taking medication?: Yes Describe barriers fpr purchasing or taking medication: Was transported home by [facility] did not stop to flower buncher or picker medication Have you had trouble with getting meals at home?: No Did you feel ready for discharge when you left the last time: Yes (I felt I was ready until I returned home) Were services received that you thought were set up on disch: No What services were received?: Patient left AMA and she did not flower buncher or picker her medications at the pharmacy. Why weren't services received?: Patient states that she did not have transportation to pharmacy she was transported by [facility]. What were the barriers for not receiving services?: Doretha left AMA and did not have servces ordered at the time of discharge Did you call your physician beore you came to the ED?: No Did your physician tell you to come in?: No How do you think you became sick enough to come back?: I was not ready to go home. I was told I was going to be discharged and when it did not happen I decided to leave anyway. I did not know how sick I was until I made it home and could not breath. - ED visits How many ED visits in the past 12 months: 3
[2017-12-11] MEDS: VANCOMYCIN 1,000 MG in Normal Saline 250 ML 166.67 MG IVPB ×2 (10:27→18:12)
--- NOTE | 2017-12-11 10:27 | INITIAL_ITS ---
- If Service Date Differs Date of service: 12/11/17 Time of Service: 10:21 Care Management Initial Assess REASON FOR HOSPITALIZATION:: Pneumonia PAST MEDICAL HISTORY/PAST SURGICAL HISTORY:: Asthma, diabetes, substance abuse disorder, seizures, chronic Hep C., bipolar disorder, GERD, hx abnormal cervical Pap, stomatitis and mucositis. PREVIOUS FUNCTIONAL STATUS/SOCIAL/FAMILY SUPPORTS:: Doretha resides at the [facility] with her mom, Noemi, and an adult friend. She has two children; ages 12 and 10, who do not live with her but reports that she sees them regularly. She has a disability hearing at the [facility] on 12/26. In 2011 she moved to [facility] from [place]. 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 Her disability is pending she receives three square meals. She is currently a cient of [facility] and [facility] her med provider is Leann Jackson. CURRENT FUNCTIONAL STATUS:: Doretha is sitting up in the chair she continues to have some shortness of breath at rest. She has an oxygen mask in place. She is engaged with CM. She was able to complete readmission assessment. Doretha is able to articulate the events the led to readmission. She states she thought she would be okay to discharge home until she got there and was not able to tolerate activity. She reports that she did not rock picker her antibiotic when she was discharged from the hospital. She feels that this admission she will stay until the course of treatment is complete. ADVANCE DIRECTIVES:: None on file at [facility]. Has patient been provided with information about the portal?: Yes Did the patient sign up for the portal?: No CODE STATUS:: Full Code INSURANCE COVERAGE / FINANCIAL ISSUES:: Medicaid. CURRENT HOME/COMMUNITY SERVICES/EQUIPMENT:: DOMING[facility] ABEBE, [facility] PRIMARY CARE PHYSICIAN:: Raya Rice APRN POTENTIAL DISCHARGE NEEDS:: Follow up appointment with PCP. PATIENT/FAMILY EDUCATION NEEDS:: Discharge education, any limitations and follow up plan of care. Ask Me Three discussion. ANTICIPATED BARRIERS TO DISCHARGE:: No anticipated barriers to discharge. TRANSPORTATION:: Doretha will transport via [facility] at discharge PLAN:: Doretha will discharge home when medically ready per MD. Anticipate patient will discharge with current community services. CM did review VCCI program through medicaid she declines a this time. CM will continue to offer support to patient and care team regarding discharge planning and disposition. Readmission - Within the Past 30 Days Yes or No: Y - Date of First Admission Date of 1st Admission: 12/08/17 - Date of this Admission Date of Admission: 12/10/17 This admission was: Through ED - Office Visit Since 1st Admission Had an appointment Been Scheduled?: No Describe barriers for scheduling or getting an appointment: Patient left AMA over the weekend - I. Interview patient and/or Family Have you had trouble purchasing/ or taking medication?: Yes Describe barriers fpr purchasing or taking medication: Was transported home by [facility] did not stop to rock picker medication Have you had trouble with getting meals at home?: No Did you feel ready for discharge when you left the last time: Yes (I felt I was ready until I returned home) Were services received that you thought were set up on disch: No What services were received?: Patient left AMA and she did not rock picker her medications at the pharmacy. Why weren't services received?: Patient states that she did not have transportation to pharmacy she was transported by [facility]. What were the barriers for not receiving services?: Doretha left AMA and did not have servces ordered at the time of discharge Did you call your physician beore you came to the ED?: No Did your physician tell you to come in?: No How do you think you became sick enough to come back?: I was not ready to go home. I was told I was going to be discharged and when it did not happen I decided to leave anyway. I did not know how sick I was until I made it home and could not breath. - ED visits How many ED visits in the past 12 months: 3
[2017-12-11 10:48] LABS: *AMPHETAMINES SCREEN URINE Negative (Negative); *BARBITURATES SCREEN URINE Negative (Negative); *BENZODIAZEPINES SCREEN URINE Negative (Negative); Cannabinoids THC Negative (Negative); Cocaine Screen,Urine Negative (Negative); METHADONE URINE SCREEN POSITIVE (Negative); OPIATES URINE SCREEN Negative (Negative)
[2017-12-11 10:49] LABS: Tricyclic Antidepressants Negative (Negative)
[2017-12-11 11:02] LABS: D-Dimer 521 ng/mlFEU (<500)
--- NOTE | 2017-12-11 12:21 | PHARADMIT ---
Addendum entered by Jer Young III 12/14/17 17:04: Pharmacy Note Subjective MD notes that IV ABX should complete 5 days of therapy. Vancomycin & Aztreonam. Patient feeling better, needs to ambulate. Objective VS-OK No Labs, FSBS-129 Wgt- 94.1 kg BM today Assessment Symbicort ordered Plan MD assuming discharge on Monday. Original Note: Addendum entered by Faviola Vick 12/13/17 16:58: Pharmacy Note Subjective not much improvement per morning report Objective VS-okay WBC-19.37(up) Assessment -vanco dosing changed to 1 gram Q6H yesterday, trough today came back high but previous dose had been given late. recalculated dosing and dosing to stay the same to target a trough of 17.9 -aztreonam continues -levemir dose decreased from 20 to 16 units daily@1999 Plan order trough for tomorrow if vanco continues Original Note: Addendum entered by Jer Young III 12/11/17 12:24: Pharmacy Note Subjective Patient returned from brief AMA departure. Remains on Aztreonam & Vancomycin Objective VS-OK Na-139 K+3.8 SCr-0.53 WBC-13.21 (afebrile) H&H-Plts-OK Had BM Assessment FSBS-152 (on Aspart/Detemir), Receives Liquid Methadone daily. Home Inderal-LA is 80mg we have 60mg. MD-OK. On Lovenox Plan Blood cultures from prior admision: No Growth x 48hrs. Follow Vanco levels Original Note: Admission Pharmacy Clinical Review PNEUMONIA PATIENT LEFT AMA ON 12/10 THEN RETURNED LATER IN THE DAY. BELOW IS THE PHARMMACY CLINICAL INTERVENTION FOR HER PRIOR ADMISSION: Admission Pharmacy Clinical Review PNEUMONIA, COPD Code Status Full Code Current Weight 92.8 kg Renally Cleared and Narrow Therapeutic Index Meds CRCL ~71ML/MIN QTc Value / Action Taken BP Control, Fever 112/88 AFEBRILE Electrolytes reviewed OK DVT Prophylaxis NO Opiate Usage / Scheduled Bowel Regimen Ordered ON CHRONIC METHADONE/NO Plt/SCr for Heparin / Enoxaparin 252/0.56 INR for Warfarin NA H/H stable, WBC/Bands 11.3/35.2 WBC 14.77(25.51 ON ADMISSION) Antibiotic appropriateness AZTREONAM(PEN ALLERGY), VANCOMYCIN Cultures and Sensitivities BC PENDING Surgical ABX d/c within 24 hr NA DM control / Insulin Dosing FS 127, INSULIN ASPART SS Heart Failure (Check EF%) (LYNNETTE's, B-Block, Diuretics) NA IV to PO Switch Home Meds Reviewed multiple AVIONICS MANAGER depressant meds, zolpidem rec dose for females is 5mg Home Meds Not Ordered insulin detemir U-100 [Levemir Flexpen] 34 units SUB-Q DAILY propranolol 80 mg PO DAILY 02/08/16 [History Confirmed 12/08/17 Comments
--- NOTE | 2017-12-11 12:45 | DI.CT_ITS ---
SYMPTOMS/DIAGNOSIS: HYPOXEMIA, SHORTNESS OF BREATH, INCREASED O2 REQUIREMENT, ? PNEUMONIA CT ANGIOGRAPHY, CHEST: CT angiography was performed with multi slice acquisition and multi planar and 3D reconstruction. CT angiography of the chest was performed with intravenous infusion of 100 cc of Omnipaque 350. There is marked motion artifact, which limits interpretation. There is hepatosplenomegaly and hepatic steatosis noted in the upper abdomen. There is poor visualization of mediastinal unopacified structures, but the possibility of mild bilateral hilar subcarinal and superior mediastinal adenopathy is raised. The tracheobronchial tree appears intact. Thoracic aorta poorly visualized but of normal diameter. No definite pulmonary embolic disease identified, but segmental and subsegmental vessels are poorly seen due to significant patient motion. There are bilateral patchy and diffuse ground-glass and consolidative radiodensities in the lungs. The findings are nonspecific, but may represent acute multifocal or diffuse pneumonitis. No pleural effusion seen. No pericardial effusion. Mild cardiomegaly may be present. CONCLUSION: 1. Bilateral diffuse ground-glass and consolidative opacities; the findings are suspicious for infectious process. 2. Nonspecific findings suggesting mediastinal adenopathy. 3. Very limited study, but no gross evidence of pulmonary embolic disease.
[2017-12-11] MEDS: Omnipaque 350 MG/ML 100 ML BTL IV (12:55)
--- NOTE | 2017-12-11 12:57 | W.PM.PROGNOT ---
Assessment and Plan (1) Pneumonia: Current visit: Yes Status: Acute Continued hypoxia, dyspnea with brief need of BiPAP overnight. Continue aztreonam and vancomycin. We will add on a d-dimer. If elevated proceed with chest CTA to rule out pulmonary embolism. Respiratory therapy following to administer regular breathing treatments. (2) Substance abuse: Current visit: Yes Status: Acute She is on methadone maintenance. We will continue with methadone 100 mg daily. Follow-up with [facility] as outpatient. Appears quite drowsy and fatigued during our visit. Incidentally left AGAINST MEDICAL ADVICE yesterday. Will obtain a urine sample to check for urine drug screen. (3) Diabetes: Current visit: Yes Status: Chronic Continue present meds. Blood sugars have been well controlled on Levemir 20 units at at bedtime. (4) COPD (chronic obstructive pulmonary disease): Current visit: Yes Status: Chronic Ongoing tobacco use disorder. Continue steroid Subjective Patient reports: no new complaints Interval history since last seen: Doretha is a 37-year-old woman with polysubstance abuse, COPD, diabetes, seizure disorder, hepatitis C, bipolar disorder, GERD, reactive airway disease who was initially admitted on December 08, 2017 with community-acquired pneumonia, however left AGAINST MEDICAL ADVICE on 12/10/2017 just to return a few hours later with severe hypoxia and dyspnea. She continues on IV vancomycin and aztreonam as well as IV steroids. Continues to receive respiratory support with regular duo nebs and albuterol as needed. Last night she had an acute hypoxic event that resulted in brief use of BiPAP, however continues on oxygen mask and seems to be tolerating this well. Respiratory is working on slowly weaning her down on the O2. Doretha has noticed improvement since her second arrival to the hospital. 10 point review of systems obtained with pertinent positives noted in HPI, otherwise negative Exam Narrative Exam Narrative: General: 37yo female, obese. Patient is fatigued appearing, drowsy, falling asleep during exam. Well developed and well nourished. No acute distress. A/Ox3. Pleasant and cooperative. HEENT: Normocephalic, Atraumatic. Conjunctiva clear, sclera non-icteric. PERRL. EOMI. Moist mucous membranes, oropharynx clear. Neck supple, no JVD, thyromegaly or lymphadenopathy. Cardiovascular: Regular rate and rhythm, S1S2, no S3 or S4. No murmur, rub, gallop. Respiratory: Chest expansion symmetrical, respirations unlabored. Lungs with scattered rhonchi and diffuse expiratory wheezing. GI: Abdomen round, soft, non-tender to palpation. Normoactive bowel sounds in all 4 quadrants. No hepatosplenomegaly or prominent masses. : deferred Extremities: Lower extremities without deformity or edema Neurological: non-focal. CN 2-12 grossly intact. Psychiatric: pleasant and cooperative. Speech clear and articulate. Mood and affect normal. Objective Objective Clinical Data: Abnormal lab results 12/10/17 12/11/17 12/11/17 Range/Units 23:56 06:35 06:35 WBC 13.21 H D (4.4-10.8) k/cumm RBC 3.88 L (4.00-5.20) m/cumm Hgb 10.7 L (12.0-15.5) g/dL Hct 34.1 L (36.0-46.0) % MCHC 31.4 L (32.0-36.0) g/dL RDW 16.0 H (11.7-14.6) % Absolute Neutrophils 11.31 H (1.2-6.7) k/cumm D-Dimer (<500) ng/mlFEU pO2 63 L (83-108) mmHg O2 Saturation 93 L (94-98) % Creatinine 0.53 L (0.55-1.02) mg/dL Glucose 134 H (70-100) mg/dL 12/11/17 Range/Units 09:57 WBC (4.4-10.8) k/cumm RBC (4.00-5.20) m/cumm Hgb (12.0-15.5) g/dL Hct (36.0-46.0) % MCHC (32.0-36.0) g/dL RDW (11.7-14.6) % Absolute Neutrophils (1.2-6.7) k/cumm D-Dimer 521 H (<500) ng/mlFEU pO2 (83-108) mmHg O2 Saturation (94-98) % Creatinine (0.55-1.02) mg/dL Glucose (70-100) mg/dL Vital Signs Temperature 37 C 12/11/17 07:40 Temperature Source Tympanic 12/11/17 07:40 Pulse 56 L 12/11/17 11:31 Pulse Rhythm Regular 12/11/17 07:57 Pulse 74 12/10/17 16:00 Respiratory Rate 32 H 12/11/17 11:31 Respiratory Effort 12/11/17 07:57 Respiratory Depth Shallow 12/11/17 07:57 Respiratory Pattern Tachypnea 12/11/17 07:57 Blood Pressure 146/75 H 12/11/17 07:40 Blood Pressure Mean 77 12/10/17 15:31 Pulse Oximetry 98 12/11/17 11:31 Oxygen Delivery Method OxyMask 12/11/17 11:31 Oxygen Flow Rate 10 12/11/17 11:31 Fraction of Inspired Oxygen (FIO2) 30 12/10/17 23:49 Pain Level 0 12/11/17 01:10 Comment 12/10/17 15:10 Intake & Output 12/10/17 12/11/17 12/11/17 23:59 11:59 23:59 Intake Total 781.667 / 781.667 250 / 250 Output Total 700 / 700 2625 / 2625 Balance -700 / -700 -1843.333 / -1843.333 250 / 250 Weight 94.9 kg Intake: IV 601.667 / 601.667 250 / 250 Oral 180 / 180 Output: Urine 700 / 700 2625 / 2625 Other: Urine Color Yellow Yellow Urine Appearance Clear Clear Urine Odor None Comment urine collected per md order Stool Size Large Stool Characteristics Soft Brown Voiding Methods Bedside Commode Bedside Commode Laboratory Results WBC 13.21 k/cumm (4.4-10.8) H D 12/11/17 06:35 RBC 3.88 m/cumm (4.00-5.20) L 12/11/17 06:35 Hgb 10.7 g/dL (12.0-15.5) L 12/11/17 06:35 Hct 34.1 % (36.0-46.0) L 12/11/17 06:35 MCV 87.9 fL (80-95) 12/11/17 06:35 MCH 27.6 pg (27.0-33.0) 12/11/17 06:35 MCHC 31.4 g/dL (32.0-36.0) L 12/11/17 06:35 RDW 16.0 % (11.7-14.6) H 12/11/17 06:35 Plt Count 258 x1000/uL (130-400) 12/11/17 06:35 MPV 10.6 fL (8.0-11.0) 12/11/17 06:35 Immature Gran % 0.5 12/11/17 06:35 Neutrophils % 85.6 12/11/17 06:35 Lymphocytes % 12.3 12/11/17 06:35 Monocytes % 1.4 12/11/17 06:35 Eosinophils % 0.1 12/11/17 06:35 Basophils % 0.1 12/11/17 06:35 Absolute Neutrophils 11.31 k/cumm (1.2-6.7) H 12/11/17 06:35 Absolute Lymphocytes 1.62 k/cumm (1.2-3.4) 12/11/17 06:35 Absolute Monocytes 0.18 k/cumm (0.11-0.7) 12/11/17 06:35 Absolute Eosinophils 0.01 k/cumm (0.0-0.7) 12/11/17 06:35 Absolute Basophils 0.01 k/cumm (0.0-0.2) 12/11/17 06:35 D-Dimer 521 ng/mlFEU (<500) H 12/11/17 09:57 Sample Site Right radial 12/10/17 23:56 pCO2 40 mmHg (34-47) 12/10/17 23:56 pO2 63 mmHg (83-108) L 12/10/17 23:56 O2 Saturation 93 % (94-98) L 12/10/17 23:56 ABG pH 7.42 (7.35-7.45) 12/10/17 23:56 ABG HCO3 26 mmol/L (22-28) 12/10/17 23:56 ABG Total CO2 24 mmol/L (22-29) 12/10/17 23:56 ABG Base Excess 1.7 mmol/L (-3-3) 12/10/17 23:56 Oxygen Liter Flow Cancelled 12/10/17 22:52 FiO2 30 % 12/10/17 23:56 Sodium 139 mmol/L (136-145) 12/11/17 06:35 Potassium 3.8 mmol/L (3.5-5.1) 12/11/17 06:35 Chloride 103 mmol/L (98-107) 12/11/17 06:35 Carbon Dioxide 27.1 mmol/L (21.0-32.0) 12/11/17 06:35 Anion Gap 8.9 mmol/L (3-11) 12/11/17 06:35 BUN 8 mg/dL (7-18) 12/11/17 06:35 Creatinine 0.53 mg/dL (0.55-1.02) L 12/11/17 06:35 Estimated GFR/1.73 m2 >= 60.00 (mL/min/1.73m2) 12/11/17 06:35 Glucose 134 mg/dL (70-100) H 12/11/17 06:35 Calcium 8.5 mg/dL (8.5-10.1) 12/11/17 06:35 Urine Opiates Screen Negative (Negative) 12/11/17 10:18 Urine Methadone Screen Positive (Negative) 12/11/17 10:18 Ur Barbiturates Screen Negative (Negative) 12/11/17 10:18 Ur Tricyclics Screen Negative (Negative) 12/11/17 10:18 Ur Amphetamines Screen Negative (Negative) 12/11/17 10:18 U Benzodiazepines Scrn Negative (Negative) 12/11/17 10:18 Urine Cocaine Screen Negative (Negative) 12/11/17 10:18 Ur THC Screen Negative (Negative) 12/11/17 10:18
--- NOTE | 2017-12-11 15:19 | DM INPTCON_ITS ---
DESCRIPTION/ASSESSMENT: Appreciate diabetes consult for Doretha Regina who is hospitalized with pneumonia. She takes 20u Determir at night and 3 units Aspart with meals. A1c 5.6 5 months ago. BMI 42 June is tightly managed for diabetes at home based on A1c and has reasonable blood sugar control here with her usual insulin dose plus insulin correction at the moderate level. Blood sugars appear to be steady taking 5 units for a meal today. INTERVENTION: Will continue to follow blood sugars with current insulin management. No intervention suggested at this time.
[2017-12-11] MEDS: Enoxaparin 40 MG/0.4 ML SYR SC (18:12)
[2017-12-11] MEDS: Zolpidem 10 MG TAB PO (20:36)
--- NOTE | 2017-12-11 22:09 | NUR.NOTE ---
Addendum entered by Jessica Lagos 12/11/17 22:10: This scribe assessed patient as patient has had increased work of breathing throughout shift per RN. Patient is asleep upon assessment and breathing rapidly and deeply. Continuous SP02 monitor is on and patient's saturations are at 90% on 5L via NC. Patient appears pale and diaphoretic. Awoke patient which was difficult as patient was very somnolent. Patient advises she feels good but given her presentation, she was asked again. Denies chest pain and continues to have tachypnea. When RN attempted to put patient on Bipap for the night, patient refused stating she did not need it anymore. Advised RN to continue PRN and scheduled nebulizers and to monitor oxygen saturations. Lung sounds are diminished bilaterally in bases with almost no air movement and course rhonchi and crackles bilaterally. Original Note: Nursing Note:
[2017-12-12] MEDS: Normal Saline Flush 10 ML SYR IVP ×4 (01:06→19:14)
[2017-12-12] MEDS: methylPREDNISolone SUCC 125 MG VIAL IVP ×2 (01:08→07:47)
[2017-12-12] MEDS: VANCOMYCIN 1,000 MG in Normal Saline 250 ML 167 MG IVPB ×3 (01:16→21:53)
[2017-12-12 04:13] VITALS: RESP 4; RESP 5; O2SAT 93
[2017-12-12] MEDS: Albuterol/Ipratropium 3 ML UPD VIAL UPD ×4 (04:13→22:57)
[2017-12-12 04:43] VITALS: RESP 5; O2SAT 93
[2017-12-12 07:20] LABS: HCT 33.5 % (36.0-46.0); HGB 10.5 g/dL (12.0-15.5); Mean Corp. HGB Concentration 31.3 g/dL (32.0-36.0); Mean Corpuscular Hemoglobin 27.3 pg (27.0-33.0); Mean Corpuscular Volume 87.2 fL (80-95); Mean Platelet Volume 10.6 fL (8.0-11.0); Platelet Count 268 x1000/uL (130-400); RBC 3.84 m/cumm (4.00-5.20); RBC Distribution Width 15.7 % (11.7-14.6); White Blood Cell Count 16.68 k/cumm (4.4-10.8)
[2017-12-12 07:25] LABS: Anion Gap 8.8 mmol/L (3-11); BUN 11 mg/dL (7-18); CO2 27.2 mmol/L (21.0-32.0); CREATININE 0.59 mg/dL (0.55-1.02); Chloride 103 mmol/L (98-107); Glucose 183 mg/dL (70-100); Potassium 3.9 mmol/L (3.5-5.1); Sodium 139 mmol/L (136-145)
[2017-12-12 07:27] VITALS: BP 144/84; PULSE 63; RESP 20; TEMP 36.6; O2SAT 98
[2017-12-12] MEDS: Methadone Liquid 10 MG/ML 100 MG PO (07:43)
[2017-12-12] MEDS: Gabapentin 800 MG TAB 1600 MG PO ×3 (07:47→19:14)
[2017-12-12] MEDS: hydrOXYzine PAMOATE 25 MG CAP 50 MG PO ×4 (07:48→19:13)
[2017-12-12] MEDS: FLUoxetine 20 MG CAP 40 MG PO ×2 (07:48→19:13)
[2017-12-12] MEDS: Esomeprazole 40 MG CAPCR PO (07:48)
[2017-12-12] MEDS: Propranolol 60 MG CAPCR PO (07:48)
[2017-12-12] MEDS: Insulin Aspart 300 UNITS/3 ML PEN SC ×5 (07:59→17:25)
[2017-12-12 09:10] VITALS: O2SAT 94
--- NOTE | 2017-12-12 10:28 | PDOC.CMPRO ---
- If Service Date Differs Date of service: 12/12/17 Time of Service: 10:28 Care Management Progress Note S/O: CM met with Doretha at the bedside she is sitting up in the chair. She states she is feeling better today and her breathing has improved. CM competed a chart review Doretha WBC is elevated she is receiving steroids for her pneumonia and IV antibiotics. She will change to inpatient today. A: Doretha is a 37 year old female admitted with pneumonia with a history of DM, Hep C P: Doretha will be discharged home when medically ready per provider. She will need a last dose letter at time of discharge for [facility]. Doretha will be discharged home and return to her community services including [facility], [facility] and RCT. RCT to transport her home at time of discharge to be coordinated by [facility].
--- NOTE | 2017-12-12 13:48 | W.PM.PROGNOT ---
Assessment and Plan (1) Pneumonia: Current visit: Yes Status: Acute Still a significant abnormal exam and O2 requirement. I doubt we will ever get cultures to identify a pathogen. She denies any recent potential exposures to HIV but will check serology given past history. Not sure what to make a slight bump in her white blood cell count other than potential reaction to steroids. Continue current antibiotics and oxygen supplementation. (2) Diabetes mellitus, type 2: Current visit: No Status: Chronic Doing well on current regimen, continue to monitor blood sugars and fine tune if needed. (3) Bipolar disorder: Current visit: No Status: Chronic Stable on current meds, no changes planned. Renal function and lithium levels acceptable. (4) COPD (chronic obstructive pulmonary disease): Current visit: Yes Status: Chronic Not having any bronchospasm now, switch to oral prednisone with rapid taper. (5) Opiate dependence: Current visit: Yes Status: Chronic No changes planned in her chronic methadone dose. Subjective Interval history since last seen: Feeling that breathing is a little more comfortable compared to yesterday, still has oxygen requirement. Has not been febrile. Chest is a bit sore from coughing but no pleuritic pain. Fair appetite, no nausea vomiting or diarrhea. Denies use of any injection drugs for many years. Believes that she had HIV testing several years ago and it was negative and does not recall any potential exposures since then. At this point she is willing to stay in the hospital for however long it takes to get her better. Exam Narrative Exam Narrative: Comfortable seated on oxygen. No fever in the past 24 hours. Sclera anicteric. No petechiae in the oral pharynx. No JVD or cervical adenopathy. Lungs with diminished breath sounds at the right base, coarse crackles throughout, no pleural friction rub. Regular heart rhythm no murmur heard no S3 or S4 heard. Nontender abdomen. Old scarring on the dorsum of her hands, vena puncture sites from her recent hospitalization on the forearms. Trace ankle edema with no skin puncture sites in the legs. 1+ distal pulses. No petechiae. Symmetric movement of all extremities. Affect normal. Objective Objective Clinical Data: Abnormal lab results 12/11/17 12/11/17 12/12/17 Range/Units 06:35 06:35 07:00 WBC 13.21 H D (4.4-10.8) k/cumm RBC 3.88 L (4.00-5.20) m/cumm Hgb 10.7 L (12.0-15.5) g/dL Hct 34.1 L (36.0-46.0) % MCHC 31.4 L (32.0-36.0) g/dL RDW 16.0 H (11.7-14.6) % Absolute Neutrophils 11.31 H (1.2-6.7) k/cumm Creatinine 0.53 L (0.55-1.02) mg/dL Glucose 134 H 183 H (70-100) mg/dL 12/12/17 Range/Units 07:00 WBC 16.68 H (4.4-10.8) k/cumm RBC 3.84 L (4.00-5.20) m/cumm Hgb 10.5 L (12.0-15.5) g/dL Hct 33.5 L (36.0-46.0) % MCHC 31.3 L (32.0-36.0) g/dL RDW 15.7 H (11.7-14.6) % Absolute Neutrophils (1.2-6.7) k/cumm Creatinine (0.55-1.02) mg/dL Glucose (70-100) mg/dL Vital Signs Temperature 36.6 C 12/12/17 07:27 Temperature Source Tympanic 12/12/17 07:27 Pulse 63 12/12/17 07:27 Pulse Rhythm Regular 12/12/17 07:35 Pulse 74 12/10/17 16:00 Respiratory Rate 20 12/12/17 07:27 Respiratory Effort Incrsd Work of Breathing 12/12/17 07:35 Respiratory Depth Deep 12/12/17 07:35 Respiratory Pattern Tachypnea 12/12/17 07:35 Blood Pressure 144/84 H 12/12/17 07:27 Blood Pressure Mean 77 12/10/17 15:31 Pulse Oximetry 94 L 12/12/17 09:10 Oxygen Delivery Method Nasal Cannula 12/12/17 09:10 Oxygen Flow Rate 3 12/12/17 09:10 Fraction of Inspired Oxygen (FIO2) 30 12/10/17 23:49 Pain Level 0 12/12/17 07:45 Comment 12/10/17 15:10 Intake & Output 10/03/3012/12/17 12/12/17 23:59 11:59 23:59 Intake Total 1440 / 1440 1490 / 1490 Output Total 875 / 875 1500 / 1500 Balance 565 / 565 -10 / -10 Weight 93.9 kg Intake: IV 740 / 740 600 / 600 Oral 700 / 700 890 / 890 Output: Urine 875 / 875 1500 / 1500 Other: Urine Color Yellow Pale Yellow Urine Appearance Clear Clear Urine Odor Normal Voiding Methods Bedside Commode Bedside Commode Laboratory Results WBC 16.68 k/cumm (4.4-10.8) H 12/12/17 07:00 RBC 3.84 m/cumm (4.00-5.20) L 12/12/17 07:00 Hgb 10.5 g/dL (12.0-15.5) L 12/12/17 07:00 Hct 33.5 % (36.0-46.0) L 12/12/17 07:00 MCV 87.2 fL (80-95) 12/12/17 07:00 MCH 27.3 pg (27.0-33.0) 12/12/17 07:00 MCHC 31.3 g/dL (32.0-36.0) L 12/12/17 07:00 RDW 15.7 % (11.7-14.6) H 12/12/17 07:00 Plt Count 268 x1000/uL (130-400) 12/12/17 07:00 MPV 10.6 fL (8.0-11.0) 12/12/17 07:00 Immature Gran % 0.5 12/11/17 06:35 Neutrophils % 85.6 12/11/17 06:35 Lymphocytes % 12.3 12/11/17 06:35 Monocytes % 1.4 12/11/17 06:35 Eosinophils % 0.1 12/11/17 06:35 Basophils % 0.1 12/11/17 06:35 Absolute Neutrophils 11.31 k/cumm (1.2-6.7) H 12/11/17 06:35 Absolute Lymphocytes 1.62 k/cumm (1.2-3.4) 12/11/17 06:35 Absolute Monocytes 0.18 k/cumm (0.11-0.7) 12/11/17 06:35 Absolute Eosinophils 0.01 k/cumm (0.0-0.7) 12/11/17 06:35 Absolute Basophils 0.01 k/cumm (0.0-0.2) 12/11/17 06:35 D-Dimer 521 ng/mlFEU (<500) H 12/11/17 09:57 Sample Site Right radial 12/10/17 23:56 pCO2 40 mmHg (34-47) 12/10/17 23:56 pO2 63 mmHg (83-108) L 12/10/17 23:56 O2 Saturation 93 % (94-98) L 12/10/17 23:56 ABG pH 7.42 (7.35-7.45) 12/10/17 23:56 ABG HCO3 26 mmol/L (22-28) 12/10/17 23:56 ABG Total CO2 24 mmol/L (22-29) 12/10/17 23:56 ABG Base Excess 1.7 mmol/L (-3-3) 12/10/17 23:56 Oxygen Liter Flow Cancelled 12/10/17 22:52 FiO2 30 % 12/10/17 23:56 Sodium 139 mmol/L (136-145) 12/12/17 07:00 Potassium 3.9 mmol/L (3.5-5.1) 12/12/17 07:00 Chloride 103 mmol/L (98-107) 12/12/17 07:00 Carbon Dioxide 27.2 mmol/L (21.0-32.0) 12/12/17 07:00 Anion Gap 8.8 mmol/L (3-11) 12/12/17 07:00 BUN 11 mg/dL (7-18) 12/12/17 07:00 Creatinine 0.59 mg/dL (0.55-1.02) 12/12/17 07:00 Estimated GFR/1.73 m2 >= 60.00 (mL/min/1.73m2) 12/12/17 07:00 Glucose 183 mg/dL (70-100) H 12/12/17 07:00 Calcium 9.0 mg/dL (8.5-10.1) 12/12/17 07:00 Vancomycin Trough 12.0 ug/mL (10.0-20.0) 12/12/17 07:00 Urine Opiates Screen Negative (Negative) 12/11/17 10:18 Urine Methadone Screen Positive (Negative) 12/11/17 10:18 Ur Barbiturates Screen Negative (Negative) 12/11/17 10:18 Ur Tricyclics Screen Negative (Negative) 12/11/17 10:18 Ur Amphetamines Screen Negative (Negative) 12/11/17 10:18 U Benzodiazepines Scrn Negative (Negative) 12/11/17 10:18 Urine Cocaine Screen Negative (Negative) 12/11/17 10:18 Ur THC Screen Negative (Negative) 12/11/17 10:18 HIV 1&2 Antibody Rapid Cancelled 12/12/17 09:00
[2017-12-12] MEDS: VANCOMYCIN 1,000 MG in Normal Saline 250 ML 166.6666 MG IVPB (16:20)
[2017-12-12 16:45] VITALS: BP 148/86; PULSE 55; RESP 21; TEMP 36.2; O2SAT 92
[2017-12-12] MEDS: Bacitracin 1 PACKET (17:12)
[2017-12-12] MEDS: Enoxaparin 40 MG/0.4 ML SYR SC (17:24)
[2017-12-12] MEDS: Zolpidem 10 MG TAB PO (19:14)
[2017-12-12 23:27] VITALS: O2SAT 90
[2017-12-13] VITALS (8 sets, daily range): BP systolic 123–148; BP diastolic 73–87; PULSE 58–80; RESP 2–26; TEMP 36.2–36.9; O2SAT 89–95
[2017-12-13] MEDS: VANCOMYCIN 1,000 MG in Normal Saline 250 ML 167 MG IVPB ×3 (03:33→21:50)
[2017-12-13] MEDS: Albuterol/Ipratropium 3 ML UPD VIAL UPD ×3 (04:10→16:36)
[2017-12-13 07:22] LABS: HCT 33.7 % (36.0-46.0); HGB 10.4 g/dL (12.0-15.5); Mean Corp. HGB Concentration 30.9 g/dL (32.0-36.0); Mean Corpuscular Hemoglobin 27.2 pg (27.0-33.0); Mean Corpuscular Volume 88.2 fL (80-95); Mean Platelet Volume 10.5 fL (8.0-11.0); Platelet Count 273 x1000/uL (130-400); RBC 3.82 m/cumm (4.00-5.20); White Blood Cell Count 19.37 k/cumm (4.4-10.8)
[2017-12-13] MEDS: predniSONE 20 MG TAB 40 MG PO (08:47)
[2017-12-13] MEDS: FLUoxetine 20 MG CAP 40 MG PO ×2 (08:48→19:39)
[2017-12-13] MEDS: Gabapentin 800 MG TAB 1600 MG PO ×3 (08:48→19:38)
[2017-12-13] MEDS: Methadone Liquid 10 MG/ML 100 MG PO (08:48)
[2017-12-13] MEDS: hydrOXYzine PAMOATE 25 MG CAP 50 MG PO ×4 (08:48→19:38)
[2017-12-13] MEDS: Propranolol 60 MG CAPCR PO (08:48)
[2017-12-13] MEDS: Esomeprazole 40 MG CAPCR PO (08:48)
[2017-12-13 10:36] LABS: HIV-1/2 Ag & Ab Screen Negative (NEGAT)
[2017-12-13] MEDS: Insulin Aspart 300 UNITS/3 ML PEN SC ×2 (12:03→17:00)
--- NOTE | 2017-12-13 13:17 | DI.RAD_ITS ---
SYMPTOMS/DIAGNOSIS: BILATERAL PNEUMONIA, NOT BETTER WITH RX CHEST X-RAY, FRONTAL AND LATERAL VIEWS: Comparison is 12/09/17. The heart size and pulmonary vasculature are within normal limits. There is poor inspiration. There has been improvement in the bilateral pulmonary infiltrates since 12/09/17. No new infiltrates, effusions or pneumothoraces are identified. The bones appear intact. Surgical clips are seen in the right upper quadrant of the abdomen. IMPRESSION: Interval improvement in the appearance of the chest with decreased pulmonary infiltrates since 12/09/17.
[2017-12-13] MEDS: Normal Saline Flush 10 ML SYR IVP ×3 (13:30→21:48)
--- NOTE | 2017-12-13 14:14 | PDOC.CMPRO ---
- If Service Date Differs Date of service: 12/13/17 Time of Service: 14:17 Care Management Progress Note S/O: CM met with Doretha at the bedside she is sitting up in the chair. She states she is feeling better today and her breathing has improved. Per report she will be started on a incentive sp, her antibiotic coverage was increased she continues to have an elevated WBC. CM competed a chart review Doretha WBC is elevated she is receiving steroids for her pneumonia and IV antibiotics. A: Doretha is a 37 year old female admitted with pneumonia with a history of DM, Hep C P: Doretha will be discharged home when medically ready per provider. She will need a last dose letter at time of discharge for [facility]. Doretha will be discharged home and return to her community services including [facility], [facility] and RCT. RCT to transport her home at time of discharge to be coordinated by [facility].
--- NOTE | 2017-12-13 15:25 | PGE_ITS ---
Assessment and Plan (1) Pneumonia: Current visit: Yes Status: Acute Her exam is still quite disturbing and that there has not been much improvement but her oxygen requirements are going down, she has been afebrile and her chest x-ray looks better. Because of her allergies and potential drug interactions with her chronic meds I am not making any changes to current antibiotic regimen and will continue to follow clinic. (2) COPD (chronic obstructive pulmonary disease): Current visit: Yes Status: Chronic Continue oxygen, duo nebs, oral prednisone. Consider adding a long- acting muscarinic agonist for chronic treatment once improved. (3) Diabetes: Current visit: Yes Status: Chronic Blood sugars a little overly tightly controlled, back off on Levemir insulin. (4) Opiate dependence: Current visit: Yes Status: Chronic Stable on her outpatient dose of methadone. Subjective Interval history since last seen: Feeling a little better with slightly less cough although it is still productive. Sputum sample obtained earlier today with nonspecific findings. Has not been febrile. Oxygen requirements going down slightly. Blood sugars are trending low. Mild symptoms with low blood sugar earlier this morning. Denies chest pain. Has not had any hemoptysis. No stomach upset or abdominal pain. No diarrhea. Mood has been stable. Exam Narrative Exam Narrative: No acute respiratory distress on 3 L. SaO2 in the low to mid 90 % range. No use of accessory muscles of respiration. Lungs good aeration but diffuse coarse crackles and wheezes in all lung [place]. Heart tones are partially obscured by her lung sounds no murmur S3 or S4. Active bowel sounds with no abdominal tenderness. Extremities warm no pitting edema. Objective Objective Clinical Data: Abnormal lab results 12/13/17 Range/Units 06:43 WBC 19.37 H (4.4-10.8) k/cumm RBC 3.82 L (4.00-5.20) m/cumm Hgb 10.4 L (12.0-15.5) g/dL Hct 33.7 L (36.0-46.0) % MCHC 30.9 L (32.0-36.0) g/dL RDW 16.0 H (11.7-14.6) % Vital Signs Temperature 36.6 C 12/13/17 08:13 Temperature Source Skin 12/13/17 08:13 Pulse 72 12/13/17 08:13 Pulse Rhythm Regular 12/13/17 08:14 Pulse 74 12/10/17 16:00 Respiratory Rate 22 12/13/17 08:13 Respiratory Effort Incrsd Work of Breathing 12/13/17 08:14 Respiratory Depth Shallow 12/13/17 08:14 Respiratory Pattern Tachypnea 12/13/17 08:14 Blood Pressure 148/87 H 12/13/17 08:13 Blood Pressure Mean 77 12/10/17 15:31 Pulse Oximetry 93 L 12/13/17 10:52 Oxygen Delivery Method Nasal Cannula 12/13/17 10:52 Oxygen Flow Rate 3 12/13/17 10:52 Fraction of Inspired Oxygen (FIO2) 30 12/10/17 23:49 Pain Level 0 12/13/17 08:13 Comment 12/13/17 04:10 Intake & Output 12/12/17 12/13/17 12/13/17 23:59 11:59 23:59 Intake Total 1420 / 1420 650 / 650 760 / 760 Output Total 500 / 500 1050 / 1050 800 / 800 Balance 920 / 920 -400 / -400 -40 / -40 Weight 94.2 kg Intake: IV 700 / 700 450 / 450 260 / 260 Oral 720 / 720 200 / 200 500 / 500 Output: Urine 500 / 500 1050 / 1050 800 / 800 Other: Urine Color Yellow Yellow Yellow Urine Appearance Clear Clear Clear Urine Odor Normal Normal Stool Size Large Moderate Stool Characteristics Soft Soft Formed Formed Liquid Brown Brown Voiding Methods Bedside Commode Bedside Commode Bedside Commode Laboratory Results WBC 19.37 k/cumm (4.4-10.8) H 12/13/17 06:43 RBC 3.82 m/cumm (4.00-5.20) L 12/13/17 06:43 Hgb 10.4 g/dL (12.0-15.5) L 12/13/17 06:43 Hct 33.7 % (36.0-46.0) L 12/13/17 06:43 MCV 88.2 fL (80-95) 12/13/17 06:43 MCH 27.2 pg (27.0-33.0) 12/13/17 06:43 MCHC 30.9 g/dL (32.0-36.0) L 12/13/17 06:43 RDW 16.0 % (11.7-14.6) H 12/13/17 06:43 Plt Count 273 x1000/uL (130-400) 12/13/17 06:43 MPV 10.5 fL (8.0-11.0) 12/13/17 06:43 Immature Gran % 0.5 12/11/17 06:35 Neutrophils % 85.6 12/11/17 06:35 Lymphocytes % 12.3 12/11/17 06:35 Monocytes % 1.4 12/11/17 06:35 Eosinophils % 0.1 12/11/17 06:35 Basophils % 0.1 12/11/17 06:35 Absolute Neutrophils 11.31 k/cumm (1.2-6.7) H 12/11/17 06:35 Absolute Lymphocytes 1.62 k/cumm (1.2-3.4) 12/11/17 06:35 Absolute Monocytes 0.18 k/cumm (0.11-0.7) 12/11/17 06:35 Absolute Eosinophils 0.01 k/cumm (0.0-0.7) 12/11/17 06:35 Absolute Basophils 0.01 k/cumm (0.0-0.2) 12/11/17 06:35 D-Dimer 521 ng/mlFEU (<500) H 12/11/17 09:57 Sample Site Right radial 12/10/17 23:56 pCO2 40 mmHg (34-47) 12/10/17 23:56 pO2 63 mmHg (83-108) L 12/10/17 23:56 O2 Saturation 93 % (94-98) L 12/10/17 23:56 ABG pH 7.42 (7.35-7.45) 12/10/17 23:56 ABG HCO3 26 mmol/L (22-28) 12/10/17 23:56 ABG Total CO2 24 mmol/L (22-29) 12/10/17 23:56 ABG Base Excess 1.7 mmol/L (-3-3) 12/10/17 23:56 Oxygen Liter Flow Cancelled 12/10/17 22:52 FiO2 30 % 12/10/17 23:56 Sodium 139 mmol/L (136-145) 12/12/17 07:00 Potassium 3.9 mmol/L (3.5-5.1) 12/12/17 07:00 Chloride 103 mmol/L (98-107) 12/12/17 07:00 Carbon Dioxide 27.2 mmol/L (21.0-32.0) 12/12/17 07:00 Anion Gap 8.8 mmol/L (3-11) 12/12/17 07:00 BUN 11 mg/dL (7-18) 12/12/17 07:00 Creatinine 0.59 mg/dL (0.55-1.02) 12/12/17 07:00 Estimated GFR/1.73 m2 >= 60.00 (mL/min/1.73m2) 12/12/17 07:00 Glucose 183 mg/dL (70-100) H 12/12/17 07:00 Calcium 9.0 mg/dL (8.5-10.1) 12/12/17 07:00 Vancomycin Trough 12.0 ug/mL (10.0-20.0) 12/12/17 07:00 Urine Opiates Screen Negative (Negative) 12/11/17 10:18 Urine Methadone Screen Positive (Negative) 12/11/17 10:18 Ur Barbiturates Screen Negative (Negative) 12/11/17 10:18 Ur Tricyclics Screen Negative (Negative) 12/11/17 10:18 Ur Amphetamines Screen Negative (Negative) 12/11/17 10:18 U Benzodiazepines Scrn Negative (Negative) 12/11/17 10:18 Urine Cocaine Screen Negative (Negative) 12/11/17 10:18 Ur THC Screen Negative (Negative) 12/11/17 10:18 HIV 1&2 Ag/Ab, 4th Gen Negative (NEGAT) 12/11/17 06:35 HIV 1&2 Antibody Rapid Cancelled 12/12/17 09:00 Objective Narrative Objective Narrative: Chest x-ray shows improvement in her bilateral infiltrates.
[2017-12-13] MEDS: Normal Saline 500 ML IV (15:47)
[2017-12-13 15:50] LABS: Vancomycin, Trough 21.8 ug/mL (10.0-20.0)
[2017-12-13] MEDS: VANCOMYCIN 1,000 MG in Normal Saline 250 ML 166.7 MG IVPB (16:41)
[2017-12-13] MEDS: Enoxaparin 40 MG/0.4 ML SYR SC (17:47)
[2017-12-13] MEDS: Zolpidem 10 MG TAB PO (19:39)
[2017-12-14] MEDS: Albuterol/Ipratropium 3 ML UPD VIAL UPD ×4 (00:29→18:05)
[2017-12-14 01:19] VITALS: BP 142/75; PULSE 73; RESP 24; TEMP 36.2; O2SAT 91
[2017-12-14] MEDS: VANCOMYCIN 1,000 MG in Normal Saline 250 ML 167 MG IVPB ×4 (03:33→22:40)
[2017-12-14 07:30] VITALS: BP 138/80; PULSE 73; RESP 22; TEMP 35.9; O2SAT 94
[2017-12-14] MEDS: Propranolol 60 MG CAPCR PO (07:55)
[2017-12-14] MEDS: FLUoxetine 20 MG CAP 40 MG PO ×2 (07:56→20:41)
[2017-12-14] MEDS: Esomeprazole 40 MG CAPCR PO (07:56)
[2017-12-14] MEDS: hydrOXYzine PAMOATE 25 MG CAP 50 MG PO ×4 (07:56→20:40)
[2017-12-14] MEDS: Gabapentin 800 MG TAB 1600 MG PO ×3 (07:56→20:40)
[2017-12-14] MEDS: predniSONE 20 MG TAB 40 MG PO (07:56)
[2017-12-14 08:30] VITALS: O2SAT 86
[2017-12-14 08:31] VITALS: O2SAT 92
[2017-12-14] MEDS: Insulin Aspart 300 UNITS/3 ML PEN SC ×3 (08:31→17:35)
[2017-12-14] MEDS: Methadone Liquid 10 MG/ML 100 MG PO (08:42)
[2017-12-14] MEDS: Budesonide/Formoterol 160/4.5 6 GM 60 PUFF INH IH ×2 (11:15→20:42)
--- NOTE | 2017-12-14 13:34 | W.PM.PROGNOT ---
Assessment and Plan (1) Pneumonia: Current visit: Yes Status: Acute Clinically improving. Given her drug allergies and potential for QT prolongation with her chronic meds, we have very limited choices for either IV or oral antibiotics. I am planning on 5 days of IV antibiotics then stop and monitor. (2) COPD (chronic obstructive pulmonary disease): Current visit: Yes Status: Chronic Still with significant O2 requirement and bronchospasm on exam. Continue prednisone at current dose. I am adding inhaled budesonide and long-acting beta agonist. Continue short acting beta agonist and short acting muscarinic agonist (DuoNeb). (3) Diabetes: Current visit: Yes Status: Chronic Blood sugars are still running low, decrease Levemir slightly more. Continue aspart at current dose. (4) Opiate dependence: Current visit: Yes Status: Chronic Stable on methadone. Subjective Interval history since last seen: Overall feeling better. Less cough. No wheeze or chest tightness. Still has oxygen requirement, low 80% range on room air and oxygen desaturations even with oxygen with exertion. Resting SaO2 in the mid 90% range. Does not have much in the way of sputum production now. Chest x-ray yesterday showed improvement. Remains afebrile. Not tachycardic or tachypneic on oxygen. Denies chest or abdominal pain. No diarrhea. No dysuria. Mood has been stable on her outpatient meds. No drug cravings. Tolerating methadone. Exam Narrative Exam Narrative: Comfortable seated, talks in full sentences. Afebrile. Blood pressure 130s over 80s pulse in the 70s SaO2 on 3 L 92-97%. Cannot see neck veins well because of her neck size. Lungs have better aeration compared to yesterday, still has musical wheezing and scattered crackles in both lung medina both posterior and anterior but definitely better aeration overall. Regular heart rhythm no murmur S3 or S4. Stomach nondistended nontender normal bowel sounds. No ankle edema with good distal pulses. She transfers and ambulates independently. Affect is normal. Objective Objective Clinical Data: Abnormal lab results 12/13/17 Range/Units 15:15 Vancomycin Trough 21.8 H* (10.0-20.0) ug/mL Vital Signs Temperature 35.9 C L 12/14/17 07:30 Temperature Source Tympanic 12/14/17 07:30 Pulse 73 12/14/17 07:30 Pulse Rhythm Regular 12/14/17 09:56 Pulse 74 12/10/17 16:00 Respiratory Rate 22 12/14/17 07:30 Respiratory Effort Labored 12/14/17 09:56 Respiratory Depth Shallow 12/14/17 09:56 Respiratory Pattern Normal 12/14/17 09:56 Blood Pressure 138/80 12/14/17 07:30 Blood Pressure Mean 77 12/10/17 15:31 Pulse Oximetry 92 L 12/14/17 08:31 Oxygen Delivery Method Nasal Cannula 12/14/17 08:31 Oxygen Flow Rate 3 12/14/17 08:31 Fraction of Inspired Oxygen (FIO2) 30 12/10/17 23:49 Pain Level 0 12/14/17 08:42 Comment 12/13/17 04:10 Intake & Output 12/13/17 12/14/17 12/14/17 23:59 11:59 23:59 Intake Total 2006.246 / 2006.246 950 / 950 Output Total 2650 / 2650 2100 / 2100 Balance -643.754 / -643.754 -1150 / -1150 Weight 94.1 kg Intake: IV 1306.246 / 1306.246 450 / 450 Oral 700 / 700 500 / 500 Output: Urine 2650 / 2650 2100 / 2100 Other: Urine Color Yellow Yellow Urine Appearance Clear Clear Urine Odor Normal Normal Comment in two voids Stool Size Moderate Large Stool Characteristics Soft Soft Formed Formed Brown Brown Voiding Methods Bedside Commode Bedside Commode Laboratory Results WBC 19.37 k/cumm (4.4-10.8) H 12/13/17 06:43 RBC 3.82 m/cumm (4.00-5.20) L 12/13/17 06:43 Hgb 10.4 g/dL (12.0-15.5) L 12/13/17 06:43 Hct 33.7 % (36.0-46.0) L 12/13/17 06:43 MCV 88.2 fL (80-95) 12/13/17 06:43 MCH 27.2 pg (27.0-33.0) 12/13/17 06:43 MCHC 30.9 g/dL (32.0-36.0) L 12/13/17 06:43 RDW 16.0 % (11.7-14.6) H 12/13/17 06:43 Plt Count 273 x1000/uL (130-400) 12/13/17 06:43 MPV 10.5 fL (8.0-11.0) 12/13/17 06:43 Immature Gran % 0.5 12/11/17 06:35 Neutrophils % 85.6 12/11/17 06:35 Lymphocytes % 12.3 12/11/17 06:35 Monocytes % 1.4 12/11/17 06:35 Eosinophils % 0.1 12/11/17 06:35 Basophils % 0.1 12/11/17 06:35 Absolute Neutrophils 11.31 k/cumm (1.2-6.7) H 12/11/17 06:35 Absolute Lymphocytes 1.62 k/cumm (1.2-3.4) 12/11/17 06:35 Absolute Monocytes 0.18 k/cumm (0.11-0.7) 12/11/17 06:35 Absolute Eosinophils 0.01 k/cumm (0.0-0.7) 12/11/17 06:35 Absolute Basophils 0.01 k/cumm (0.0-0.2) 12/11/17 06:35 D-Dimer 521 ng/mlFEU (<500) H 12/11/17 09:57 Sample Site Right radial 12/10/17 23:56 pCO2 40 mmHg (34-47) 12/10/17 23:56 pO2 63 mmHg (83-108) L 12/10/17 23:56 O2 Saturation 93 % (94-98) L 12/10/17 23:56 ABG pH 7.42 (7.35-7.45) 12/10/17 23:56 ABG HCO3 26 mmol/L (22-28) 12/10/17 23:56 ABG Total CO2 24 mmol/L (22-29) 12/10/17 23:56 ABG Base Excess 1.7 mmol/L (-3-3) 12/10/17 23:56 Oxygen Liter Flow Cancelled 12/10/17 22:52 FiO2 30 % 12/10/17 23:56 Sodium 139 mmol/L (136-145) 12/12/17 07:00 Potassium 3.9 mmol/L (3.5-5.1) 12/12/17 07:00 Chloride 103 mmol/L (98-107) 12/12/17 07:00 Carbon Dioxide 27.2 mmol/L (21.0-32.0) 12/12/17 07:00 Anion Gap 8.8 mmol/L (3-11) 12/12/17 07:00 BUN 11 mg/dL (7-18) 12/12/17 07:00 Creatinine 0.59 mg/dL (0.55-1.02) 12/12/17 07:00 Estimated GFR/1.73 m2 >= 60.00 (mL/min/1.73m2) 12/12/17 07:00 Glucose 183 mg/dL (70-100) H 12/12/17 07:00 Calcium 9.0 mg/dL (8.5-10.1) 12/12/17 07:00 Vancomycin Trough 21.8 ug/mL (10.0-20.0) H* 12/13/17 15:15 Urine Opiates Screen Negative (Negative) 12/11/17 10:18 Urine Methadone Screen Positive (Negative) 12/11/17 10:18 Ur Barbiturates Screen Negative (Negative) 12/11/17 10:18 Ur Tricyclics Screen Negative (Negative) 12/11/17 10:18 Ur Amphetamines Screen Negative (Negative) 12/11/17 10:18 U Benzodiazepines Scrn Negative (Negative) 12/11/17 10:18 Urine Cocaine Screen Negative (Negative) 12/11/17 10:18 Ur THC Screen Negative (Negative) 12/11/17 10:18 HIV 1&2 Ag/Ab, 4th Gen Negative (NEGAT) 12/11/17 06:35 HIV 1&2 Antibody Rapid Cancelled 12/12/17 09:00 Fingerstick blood sugars in the low 100s. This morning was down to 69.
--- NOTE | 2017-12-14 13:44 | W.PM.PROGNOT ---
Objective Objective Clinical Data: Abnormal lab results 12/13/17 Range/Units 15:15 Vancomycin Trough 21.8 H* (10.0-20.0) ug/mL Vital Signs Temperature 35.9 C L 12/14/17 07:30 Temperature Source Tympanic 12/14/17 07:30 Pulse 73 12/14/17 07:30 Pulse Rhythm Regular 12/14/17 09:56 Pulse 74 12/10/17 16:00 Respiratory Rate 22 12/14/17 07:30 Respiratory Effort Labored 12/14/17 09:56 Respiratory Depth Shallow 12/14/17 09:56 Respiratory Pattern Normal 12/14/17 09:56 Blood Pressure 138/80 12/14/17 07:30 Blood Pressure Mean 77 12/10/17 15:31 Pulse Oximetry 92 L 12/14/17 08:31 Oxygen Delivery Method Nasal Cannula 12/14/17 08:31 Oxygen Flow Rate 3 12/14/17 08:31 Fraction of Inspired Oxygen (FIO2) 30 12/10/17 23:49 Pain Level 0 12/14/17 08:42 Comment 12/13/17 04:10 Intake & Output 12/13/17 12/14/17 12/14/17 23:59 11:59 23:59 Intake Total 2006.246 / 2006.246 950 / 950 Output Total 2650 / 2650 2100 / 2100 Balance -643.754 / -643.754 -1150 / -1150 Weight 94.1 kg Intake: IV 1306.246 / 1306.246 450 / 450 Oral 700 / 700 500 / 500 Output: Urine 2650 / 2650 2100 / 2100 Other: Urine Color Yellow Yellow Urine Appearance Clear Clear Urine Odor Normal Normal Comment in two voids Stool Size Moderate Large Stool Characteristics Soft Soft Formed Formed Brown Brown Voiding Methods Bedside Commode Bedside Commode Laboratory Results WBC 19.37 k/cumm (4.4-10.8) H 12/13/17 06:43 RBC 3.82 m/cumm (4.00-5.20) L 12/13/17 06:43 Hgb 10.4 g/dL (12.0-15.5) L 12/13/17 06:43 Hct 33.7 % (36.0-46.0) L 12/13/17 06:43 MCV 88.2 fL (80-95) 12/13/17 06:43 MCH 27.2 pg (27.0-33.0) 12/13/17 06:43 MCHC 30.9 g/dL (32.0-36.0) L 12/13/17 06:43 RDW 16.0 % (11.7-14.6) H 12/13/17 06:43 Plt Count 273 x1000/uL (130-400) 12/13/17 06:43 MPV 10.5 fL (8.0-11.0) 12/13/17 06:43 Immature Gran % 0.5 12/11/17 06:35 Neutrophils % 85.6 12/11/17 06:35 Lymphocytes % 12.3 12/11/17 06:35 Monocytes % 1.4 12/11/17 06:35 Eosinophils % 0.1 12/11/17 06:35 Basophils % 0.1 12/11/17 06:35 Absolute Neutrophils 11.31 k/cumm (1.2-6.7) H 12/11/17 06:35 Absolute Lymphocytes 1.62 k/cumm (1.2-3.4) 12/11/17 06:35 Absolute Monocytes 0.18 k/cumm (0.11-0.7) 12/11/17 06:35 Absolute Eosinophils 0.01 k/cumm (0.0-0.7) 12/11/17 06:35 Absolute Basophils 0.01 k/cumm (0.0-0.2) 12/11/17 06:35 D-Dimer 521 ng/mlFEU (<500) H 12/11/17 09:57 Sample Site Right radial 12/10/17 23:56 pCO2 40 mmHg (34-47) 12/10/17 23:56 pO2 63 mmHg (83-108) L 12/10/17 23:56 O2 Saturation 93 % (94-98) L 12/10/17 23:56 ABG pH 7.42 (7.35-7.45) 12/10/17 23:56 ABG HCO3 26 mmol/L (22-28) 12/10/17 23:56 ABG Total CO2 24 mmol/L (22-29) 12/10/17 23:56 ABG Base Excess 1.7 mmol/L (-3-3) 12/10/17 23:56 Oxygen Liter Flow Cancelled 12/10/17 22:52 FiO2 30 % 12/10/17 23:56 Sodium 139 mmol/L (136-145) 12/12/17 07:00 Potassium 3.9 mmol/L (3.5-5.1) 12/12/17 07:00 Chloride 103 mmol/L (98-107) 12/12/17 07:00 Carbon Dioxide 27.2 mmol/L (21.0-32.0) 12/12/17 07:00 Anion Gap 8.8 mmol/L (3-11) 12/12/17 07:00 BUN 11 mg/dL (7-18) 12/12/17 07:00 Creatinine 0.59 mg/dL (0.55-1.02) 12/12/17 07:00 Estimated GFR/1.73 m2 >= 60.00 (mL/min/1.73m2) 12/12/17 07:00 Glucose 183 mg/dL (70-100) H 12/12/17 07:00 Calcium 9.0 mg/dL (8.5-10.1) 12/12/17 07:00 Vancomycin Trough 21.8 ug/mL (10.0-20.0) H* 12/13/17 15:15 Urine Opiates Screen Negative (Negative) 12/11/17 10:18 Urine Methadone Screen Positive (Negative) 12/11/17 10:18 Ur Barbiturates Screen Negative (Negative) 12/11/17 10:18 Ur Tricyclics Screen Negative (Negative) 12/11/17 10:18 Ur Amphetamines Screen Negative (Negative) 12/11/17 10:18 U Benzodiazepines Scrn Negative (Negative) 12/11/17 10:18 Urine Cocaine Screen Negative (Negative) 12/11/17 10:18 Ur THC Screen Negative (Negative) 12/11/17 10:18 HIV 1&2 Ag/Ab, 4th Gen Negative (NEGAT) 12/11/17 06:35 HIV 1&2 Antibody Rapid Cancelled 12/12/17 09:00
[2017-12-14 15:09] VITALS: PULSE 102; PULSE 75; PULSE 89; RESP 20; RESP 24; O2SAT 86; O2SAT 90; O2SAT 92
--- NOTE | 2017-12-14 16:10 | PDOC.CMPRO ---
- If Service Date Differs Date of service: 12/14/17 Time of Service: 16:10 Care Management Progress Note S/O: CM met with Doretha at the bedside she is sitting up in the chair. She states she is feeling better today and her breathing has improved. Patient reviewed at interdisciplinary rounds plan will be for her to complete a 5 day course of IV antibiotics and discharge home. Anticipate she will discharge home on Monday and will need RCT transportation arranged. A: Doretha is a 37 year old female admitted with pneumonia with a history of DM, and Hep C P: Doretha will be discharged home when medically ready per provider. She will need a last dose letter at time of discharge for [facility]. Doretha will be discharged home and return to her community services including [facility], [facility] and [facility]. RCT to transport her home at time of discharge to be coordinated by HE[facility].
[2017-12-14] MEDS: Normal Saline Flush 10 ML SYR IVP ×2 (16:44→22:37)
[2017-12-14] MEDS: Normal Saline 500 ML IV (16:48)
[2017-12-14 16:53] VITALS: BP 118/78; PULSE 68; RESP 20; TEMP 35.6; O2SAT 92
[2017-12-14] MEDS: Enoxaparin 40 MG/0.4 ML SYR SC (17:37)
[2017-12-14] MEDS: Zolpidem 10 MG TAB PO (20:41)
[2017-12-15] VITALS: BP 129/83; PULSE 75; RESP 22; TEMP 36.9; O2SAT 86
[2017-12-15] MEDS: Albuterol/Ipratropium 3 ML UPD VIAL UPD ×2 (00:04→05:42)
[2017-12-15 00:14] VITALS: O2SAT 96
[2017-12-15] MEDS: Normal Saline Flush 10 ML SYR IVP (03:47)
[2017-12-15] MEDS: VANCOMYCIN 1,000 MG in Normal Saline 250 ML 167 MG IVPB ×2 (03:50→10:53)
[2017-12-15 05:49] VITALS: O2SAT 96
[2017-12-15 07:10] LABS: HCT 35.5 % (36.0-46.0); Mean Corpuscular Hemoglobin 26.9 pg (27.0-33.0); Mean Corpuscular Volume 86.8 fL (80-95); Mean Platelet Volume 9.9 fL (8.0-11.0); Platelet Count 287 x1000/uL (130-400); RBC 4.09 m/cumm (4.00-5.20); RBC Distribution Width 15.5 % (11.7-14.6); White Blood Cell Count 15.16 k/cumm (4.4-10.8)
[2017-12-15 07:19] LABS: BUN 13 mg/dL (7-18); Calcium 8.4 mg/dL (8.5-10.1); Chloride 101 mmol/L (98-107); Glucose 65 mg/dL (70-100); Potassium 3.7 mmol/L (3.5-5.1); Sodium 139 mmol/L (136-145)
[2017-12-15 07:20] VITALS: O2SAT 92
[2017-12-15] MEDS: Budesonide/Formoterol 160/4.5 6 GM 60 PUFF INH IH (07:27)
[2017-12-15] MEDS: Propranolol 60 MG CAPCR PO (07:46)
[2017-12-15] MEDS: Gabapentin 800 MG TAB 1600 MG PO (07:46)
[2017-12-15] MEDS: FLUoxetine 20 MG CAP 40 MG PO (07:46)
[2017-12-15] MEDS: predniSONE 20 MG TAB 40 MG PO (07:46)
[2017-12-15] MEDS: Esomeprazole 40 MG CAPCR PO (07:46)
[2017-12-15] MEDS: Methadone Liquid 10 MG/ML 100 MG PO (07:47)
[2017-12-15 07:55] VITALS: BP 137/86; PULSE 79; RESP 22; TEMP 36.2; O2SAT 92
[2017-12-15] MEDS: Insulin Aspart 300 UNITS/3 ML PEN SC ×2 (08:41→12:21)
[2017-12-15] MEDS: hydrOXYzine PAMOATE 25 MG CAP 50 MG PO ×2 (08:46→12:32)
[2017-12-15 09:45] VITALS: PULSE 82; PULSE 85; PULSE 88; RESP 18; RESP 20; O2SAT 82; O2SAT 83; O2SAT 92
--- NOTE | 2017-12-15 09:55 | PDOC.CMPRO ---
- If Service Date Differs Date of service: 12/15/17 Time of Service: 09:55 Care Management Progress Note S/O: Doretha was sitting up in bed when CM visits this morning. She is engaged in conversation and talkative. Doretha continues to receive 3 L of supplemental oxygen via NC and will reportedly discharge with home O2. Doretha reports that she is feeling better today and would like to go home. Patient has just completed her fifth and final dose of IV antibiotics and is waiting to see the MD. A: Doretha is a 37 year old female admitted with pneumonia with a history of DM, and Hep C P: Doretha will be discharged home when medically ready per provider. She will need a last dose letter at time of discharge for [facility]. Doretha will be discharged home with O2 and return to her community services including [facility] and [facility]. No additional services anticipated. RCT to transport her home at time of discharge to be coordinated by CM. CM will continue to offer support to patient and care team regarding discharge planning and disposition.
--- NOTE | 2017-12-15 10:02 | CMPROGNOTE_ITS ---
- If Service Date Differs Date of service: 12/15/17 Time of Service: 09:55 Care Management Progress Note S/O: Doretha was sitting up in bed when CM visits this morning. She is engaged in conversation and talkative. Doretha continues to receive 3 L of supplemental oxygen via NC and will reportedly discharge with home O2. Doretha reports that she is feeling better today and would like to go home. Patient has just completed her fifth and final dose of IV antibiotics and is waiting to see the MD. A: Doretha is a 37 year old female admitted with pneumonia with a history of DM, and Hep C P: Doretha will be discharged home when medically ready per provider. She will need a last dose letter at time of discharge for [facility]. Doretha will be discharged home with O2 and return to her community services including [facility] and [facility]. No additional services anticipated. RCT to transport her home at time of discharge to be coordinated by CM. CM will continue to offer support to patient and care team regarding discharge planning and disposition.
--- NOTE | 2017-12-15 12:33 | PDOC.CMDIS ---
- If Service Date Differs Date of service: 12/15/17 Time of Service: 12:33 LACE Index Scoring Tool - Questions: Length of Stay (in days): 4 - 6 Acuity (Admit via E.D.?): Yes Comorbidities: Diabetes w/o Complication, Chronic Pulmonary Disease E.D. Visits: 3 - Answers: Total Score: 13 Risk of Readmission: High Risk Care Management Discharge Reason for Hospitalization: Pneumonia Discharge Plan: Doretha will be discharging home AMA. She will have supplemental O2 delivered to her home and continue on oral antibiotics. Doretha will have a follow up appointment with her PCP, Raya Rice, scheduled for next week. Patient/Family Education Needs: Discharge education, any limitations, and follow up plan of care. Ask Me Three discussion.
--- NOTE | 2017-12-15 13:22 | W.PM.DS.N ---
DS: Diagnosis Discharge Diagnosis (1) COPD (chronic obstructive pulmonary disease): Status: Chronic (2) Pneumonia: Status: Acute (3) Hypoxemia: Status: Acute (4) Diabetes: Status: Chronic (5) Opiate dependence: Status: Chronic Discharge Plan Disposition Patient Disposition: AGAINST MEDICAL ADVICE Condition: Improving Discharge Details Reason For Visit: COPD Admit Date/Time: 12/12/17 09:02 Admit Provider: Terry Mckee Attending Provider: Terry Mckee Primary Care Provider: Raya Rice Hospital Course Hospital Course: 37-year-old woman, not currently smoking, remote history of asthma, chronic problems of diabetes, hepatitis C and opiate dependence admitted originally on December 08 with COPD exacerbation and pneumonia, treated with oxygen neb treatments and empiric antibiotics with 1 of 2 bottles growing staph epi felt to be contaminant. She signed out AMA on December 10 only to return for this readmission within hours because of increasing shortness of breath and dyspnea. She was not febrile but was hypoxic on re-presentation and was admitted for further treatment of her respiratory problems. She required high flow oxygen initially to maintain SaO2 above 90%. She had a chest CT for pulmonary embolism which was negative for PE but showed bilateral pulmonary infiltrates. Due to her drug allergies as well as QT prolonging chronic drugs, she was treated with vancomycin and aztreonam. Sputum culture grew normal aleah and yeast. She had testing for HIV which was negative. She had transient temperature elevation on her first and then was a was afebrile thereafter. Her lung exam is continued to show coarse wheezing and crackles but improved slowly during her hospitalization. Follow-up chest x-ray showed improvement of the bilateral infiltrates. She was treated with duo nebs as well as the initiation of Symbicort. She was placed on systemic steroids initially intravenously then oral. Through the course of her hospitalization her O2 requirements diminished but she still was hypoxic, SaO2 in the low 80% range on room air and even with oxygen supplement during activity, SaO2 would drop. She required, on the day of her departure, 8 L of oxygen to maintain SaO2 above 90% with activity, 4 L with SaO2 92%. Her blood sugars were well controlled and overtreated with insulin with the dose steadily being reduced during her hospitalization because of hypoglycemic morning blood sugars. She became increasingly impatient about remaining in the hospital to complete a minimum of 5 days parenteral antibiotics. She did not have any definite exacerbations of her bipolar disorder. She had no problems with opiate withdrawal with her outpatient dose of methadone. Medication changes during this hospitalization: Insulin dose was decreased but will resume her outpatient dose on discharge presuming she will go back to past eating pattern. Prednisone will be tapered gradually. Additional 5 days of doxycycline prescribed on discharge. Home Meds and New Rx's Prescriptions: New budesonide-formoterol [Symbicort] 160-4.5 mcg/actuation Hfa Aerosol Inhaler 2 puff Inhalation BID Qty: 1 RF: 3 prednisone 10 mg tablet 10 mg PO DAILY Qty: 30 RF: 0 Continue albuterol sulfate 8.5 GM HFA aerosol inhaler 2 puff Inhalation Q6H PRN PRNRF: 0 methadone 10 MG/ML concentrate 100 mg PO DAILY RF: 0 insulin detemir U-100 [Levemir FlexTouch U-100 Insuln] 100 unit/mL (3 mL) Insulin Pen 20 unit subcut HS Qty: 15 RF: 0 doxycycline hyclate 100 mg tablet 100 mg PO BID Qty: 14 RF: 0 albuterol sulfate 2.5 MG/3 ML solution for nebulization 2.5 mg Inhalation Q2H PRN (Reason: bronchospasm) Qty: 90 RF: 3 lithium carbonate 300 mg Tablet Extended Release 300 mg PO BID RF: 0 hydroxyzine pamoate 100 mg Capsule 100 mg PO QPM RF: 0 propranolol 80 mg Capsule,Extended Release 24hr 80 mg PO DAILY RF: 0 levothyroxine 25 mcg Capsule 25 mcg PO DAILY RF: 0 esomeprazole magnesium [Nexium] 40 MG capsule,delayed release(DR/EC) 40 mg PO DAILY RF: 0 hydroxyzine pamoate [Vistaril] 25 MG capsule 50 mg PO BID RF: 0 fluoxetine 20 MG capsule 40 mg PO BID RF: 0 zolpidem 10 MG tablet 10 mg PO HS RF: 0 insulin lispro [Humalog KwikPen Insulin] 100 UNIT/ML insulin pen 3 unit SQ PRN PRNRF: 0 Changed gabapentin 600 MG tablet 1,200 mg PO TID Qty: 0 RF: 0 Discontinued prednisone 20 mg Tablet 40 mg PO DAILY Qty: 14 RF: 0 Discharge Instructions Instructions: COPD (Chronic Obstructive Pulmonary Disease) (DC), Chronic Lung Disease and Infection Prevention (DC) Additional Instructions: Avoid tobacco smoke. Continue to use oxygen until you are seen in follow-up. Return to the hospital if you have increasing cough or shortness of breath. Stand Alone Forms: Nursing Discharge Form Referrals: Raya Rice [Primary Care Provider] - 12/19/17 11:00 am (You will need to be seen next week for a follow up appointment. ) Activity:: Activity as Tolerated Equipment/Supplies:: Oxygen (L/min Below) Diet:: Carb Counting Discharge Orders Discharge Orders: Discharge Order (Routine); Ordered 12/15/17 Ordered By: Mitch Sam Discharge Data Discharge Comment: oxygen at 4 liters per minute. Exam Narrative Exam Narrative: On the day of discharge she can speak in full sentences, transfers with oxygen on 4 L but still desaturates with activity. Ambulatory SaO2 required 8 L of oxygen to maintain sat above 90%, 92% at rest on 4 L. Lungs continue to have coarse crackles and scattered wheezes in all lung medina but definitely better aeration compared to 48 hours prior. No heart murmur. No ankle edema. DS: Data Vitals/I&O Vitals and I&O: Vital Signs Temperature 36.2 C L 12/15/17 07:55 Temperature Source Tympanic 12/15/17 07:55 Pulse 79 12/15/17 07:55 Pulse Rhythm Regular 12/15/17 11:00 Pulse 74 12/10/17 16:00 Respiratory Rate 22 12/15/17 07:55 Respiratory Effort Non-Labored 12/15/17 11:00 Respiratory Depth Normal 12/15/17 11:00 Respiratory Pattern Normal 12/15/17 11:00 Blood Pressure 137/86 12/15/17 07:55 Blood Pressure Mean 77 12/10/17 15:31 Pulse Oximetry 92 L 12/15/17 07:55 Oxygen Delivery Method Room Air 12/15/17 07:55 Oxygen Flow Rate 0 12/15/17 07:55 Fraction of Inspired Oxygen (FIO2) 30 12/10/17 23:49 Pain Level 0 12/15/17 07:47 Comment 12/15/17 00:00 Intake & Output 12/14/17 12/15/17 12/15/17 23:59 11:59 23:59 Intake Total 1857.173 / 6425.203 6389 / 1200 250 / 250 Output Total 2400 / 2400 950 / 950 Balance -542.827 / -542.827 250 / 250 250 / 250 Weight 94.56 kg Intake: IV 897.173 / 897.173 600 / 600 250 / 250 Oral 960 / 960 600 / 600 Output: Urine 2400 / 2400 950 / 950 Other: Urine Color Yellow Yellow Urine Appearance Clear Clear Urine Odor None Normal Voiding Methods Toilet Toilet Labs on day of discharge: Labs from last 24 hours 12/15/17 12/15/17 06:50 06:50 WBC 15.16 H RBC 4.09 Hgb 11.0 L Hct 35.5 L MCV 86.8 MCH 26.9 L MCHC 31.0 L RDW 15.5 H Plt Count 287 MPV 9.9 Sodium 139 Potassium 3.7 Chloride 101 Carbon Dioxide 32.0 Anion Gap 6.0 BUN 13 Creatinine 0.60 Estimated GFR/1.73 m2 >= 60.00 Glucose 65 L D Calcium 8.4 L Preliminary micro results at discharge 12/13/17 11:15 Sputum Culture - Preliminary Sputum - Expectorated Normal Aleah YEAST
--- NOTE | 2017-12-15 13:39 | RESPIRATORY ---
Upon patient leaving, provided her with an oxygen tank/cart and spent a total of 15 minutes providing her education on the use of the tank and the hazards. Informed patient it is completely unsafe to smoke while she is wearing the oxygen as well as it being unsafe for her roommates to smoke in the house around her while she's using the oxygen. Patient verbally confirmed she understood the hazards and dangers this poses. Educated patient on proper storage of oxygen tanks. She will be leaving with a tank and cart therefore I instructed her to always secure her tank in the cart and if it is empty to lay it on its side until it is picked up if she does not have subsequent carts. Patient also understands that the oxygen provider has not yet accepted her at this time and there is a possibility that they won't. In the event of this I informed patient she would not be given anymore tanks. Patient confirmed she understood this and did not have any further questions at this time.
--- NOTE | 2017-12-15 15:15 | DM INPTCON_ITS ---
DESCRIPTION/ASSESSMENT: Appreciate diabetes consult for Doretha Tapia who is hospitalized for breathing issues now on 40mg Prednisone. A1c 5.6 Blood sugars here 65-129 over past 2 days with 2 hypoglycemia episodes, only one with symptoms. At home she takes 20u Levemir and Humalog at 3 units per meal. This has been decreased to 14 and tonight to 12 units. Doretha states she is careful with her food at home, but not as restricted as here. She is not counting carbohydrates. She eats mostly carbohydrate at breakfast; tofu or chicken for her other meals. She states she does have 1 Mountain Dew a day. She has given up sweets as her way of managing her diabetes. She states her psych meds make her hungry. She is complimented on her A1c achievement and cautioned about hypoglycemia unawareness. INTERVENTION: Support decrease in Levemir to 12units tonight. She understands she may need to go back to her usual dose when she goes home. Reviewed basic management at home. She feels she does the best she can given her psych issues. She states he has great support from friend and mother who takes care of her medications and meals. PLAN: Visit her with diabetes food guide prior to discharge. Will follow her blood sugars.
== END 2017-12-15 14:22 | disposition left against medical advice (07) | DRG 194 ==
LOC: ER 15:48 → MS 16:17
PROVIDERS: Nurse Practitioner Primary Care; Admitting Provider Family Medicine; Emergency Provider Student in an Organized Health Care Education/Training Program; PCP Nurse Practitioner Family; Visit Provider Internal Medicine
DX: J18.9 Pneumonia, unspecified organism (principal); J44.0 Chronic obstructive pulmonary disease with (acute) lower respiratory infection; R09.02 Hypoxemia; Z53.21 Procedure and treatment not carried out due to patient leaving prior to being seen by health care provider; B19.20 Unspecified viral hepatitis C without hepatic coma; Z11.4 Encounter for screening for human immunodeficiency virus [HIV]; F31.9 Bipolar disorder, unspecified; Z79.4 Long term (current) use of insulin; E11.649 Type 2 diabetes mellitus with hypoglycemia without coma; F17.210 Nicotine dependence, cigarettes, uncomplicated; F19.11 Other psychoactive substance abuse, in remission
CPT/HCPCS: 36415; 36556; 36569; 71275; 80048; 80053; 80307; 82805; 85027; 87040; 87077; 87389; 93005; 94618; 94640; 94644; 94645; 96361; 96365; 96366; 96367; 96368; 96375; 99222; 99232; 99233; 99239; 99285; 99291; 99292; J1650; 36600; 71045; 71046; 80178; 80202; 83605; 83735; 84443; 84484; 85025; 85379; 87070; 87186; 87205; 93010; 94660; 99217; 99219; 99220; 99225; 99226; G0378; J2930; J3490; J7512; J7613; J7620

== ENCOUNTER 2017-12-20 10:20 | Outpatient (CLI) | payer MEDICAID, SELFPAY ==
--- NOTE | 2017-12-20 10:38 | DI.RAD_ITS ---
SYMPTOMS/DIAGNOSIS: PNEUMONIA, J18.9, F/U CHEST X-RAY, PA AND LATERAL: Comparison is 12/13/17. The heart size and pulmonary vasculature are within normal limits. The lungs are clear. The pneumonia has resolved. No effusions or pneumothoraces are identified. Surgical clips are again seen in the right upper quadrant of the abdomen, likely reflecting prior cholecystectomy. IMPRESSION: No acute pulmonary process. Interval resolution of the pulmonary infiltrates.
== END 2017-12-20 10:40 ==
PROVIDERS: PCP Nurse Practitioner Family; Visit Provider Nurse Practitioner Family
DX: J18.9 Pneumonia, unspecified organism (principal)
CPT/HCPCS: 71046

== ENCOUNTER 2018-03-01 16:11 | Outpatient (CLI) | payer MEDICAID, SELFPAY ==
--- NOTE | 2018-03-01 12:15 | DI.RAD_ITS ---
SYMPTOM/DIAGNOSIS: EXERTIONAL SOB, R06.09, HYPOXIA, R09.02 PA AND LATERAL CHEST: The heart is normal in size. The lungs are clear. The mediastinal structures and pleura appear intact. CONCLUSION: Normal chest. No evidence of acute cardiopulmonary disease.
== END 2018-03-01 16:31 ==
PROVIDERS: PCP Nurse Practitioner Family; Visit Provider Nurse Practitioner Family
DX: R06.02 Shortness of breath (principal); R09.02 Hypoxemia
CPT/HCPCS: 71046

== ENCOUNTER 2018-10-02 10:44 | Outpatient (CLI) | payer MEDICAID, SELFPAY ==
[2018-10-02 12:01] LABS: Abs Immature Grans 0.03 k/cumm (0.0-0.09); Absolute Basophil Count 0.05 k/cumm (0.0-0.2); Absolute Eosinophil Count 0.28 k/cumm (0.0-0.7); Absolute Lymphocyte Count 4.04 k/cumm (1.2-3.4); Absolute Monocyte Count 0.83 k/cumm (0.11-0.7); Basophils % 0.5; Eosinophils % 2.6; HGB 11.9 g/dL (12.0-15.5); Immature Grans % 0.3; Lymphocytes % 36.9; Mean Corp. HGB Concentration 30.5 g/dL (32.0-36.0); Mean Corpuscular Hemoglobin 27.2 pg (27.0-33.0); Mean Platelet Volume 11.4 fL (8.0-11.0); Monocytes % 7.6; Neutrophils % 52.1; Platelet Count 260 x1000/uL (130-400); RBC 4.38 m/cumm (4.00-5.20); RBC Distribution Width 17.2 % (11.7-14.6); White Blood Cell Count 10.94 k/cumm (4.4-10.8)
[2018-10-02 12:19] LABS: ALT 96 U/L (12-78); AST 76 U/L (15-37); Alkaline Phosphatase 171 U/L (46-116); Anion Gap 6.8 mmol/L (3-11); BUN 11 mg/dL (7-18); Bilirubin, Total 0.3 mg/dL (0.2-1.0); CO2 27.2 mmol/L (21.0-32.0); CREATININE 0.59 mg/dL (0.55-1.02); Calcium 9.4 mg/dL (8.5-10.1); Chloride 103 mmol/L (98-107); Glucose 113 mg/dL (70-100); Potassium 4.3 mmol/L (3.5-5.1); Sodium 137 mmol/L (136-145); TSH (W/Ref FT4) 3.66 uIU/mL (0.36-3.74); Total Protein 7.6 g/dL (6.4-8.2)
[2018-10-03 11:44] LABS: HBs Antibody, Quant 3.4 mIU/mL; Hepatitis B Surface Ab Negative; Hepatitis B Surface Ag Negative (NEGAT)
[2018-10-03 11:50] LABS: HIV-1/2 Ag & Ab Screen Negative (NEGAT)
[2018-10-03 11:52] LABS: Hep A Total Ab w Rflx IgM Negative (NEGAT); Hep B Core Antibody Negative (NEGAT); Hepatitis C Ab w Rflx HCV PCR Reactive (NEGAT)
== END 2018-10-02 11:04 ==
PROVIDERS: PCP Nurse Practitioner Family; Visit Provider Nurse Practitioner Family
DX: E11.9 Type 2 diabetes mellitus without complications (principal); Z79.4 Long term (current) use of insulin; E03.9 Hypothyroidism, unspecified; R19.7 Diarrhea, unspecified; B18.2 Chronic viral hepatitis C; Z11.4 Encounter for screening for human immunodeficiency virus [HIV]
CPT/HCPCS: 36415; 80053; 86704; 86706; 86709; 86803; 87340; 87389; 84443; 85025; 87522